=== PATIENT | male | born 1950 | race African-American/Black ===

== ENCOUNTER 2018-10-23 16:56 | Inpatient (IN) | payer MEDICARE, BC ==
[~2018-10-23] VITALS: Ht 185.4 cm; Wt 88.9 kg
[~2018-10-23 16:56] MED LIST: AMLO2.5T45 MT; CARB-31 MT; CLON0.1T PO; CLOP75TA33 MT; DEPAKOTE PO; DIPHENHYDRAMINE PO; DIVA250T45 MT; L-THYROXINE; LAMICTAL; LAMO50TA3 MT; LEVE250T2 MT; LISI2.5T47 MT; LISINOPRIL PO; LURA120T MT; MIRT15TA6 PO; MIRT7.5T11 MT; PANT20TA3 MT; QUET25TA MT; ZIPR80CA2 PO; ZOLP10TA6 MT; [UNRECOGNIZED DRUG - REMARK]
[2018-10-23] MEDS ORDERED: LEVETIRACETAM 1000MG/100ML 100 ML IV ONE (17:45)
[2018-10-23 17:55] LABS: BASOPHILS % 0.7 % (0.0-2.0); EOSINOPHILS % 2.8 % (0.0-5.0); HEMATOCRIT. 43.6 % (42.0-52.0); HEMOGLOBIN. 14.6 g/dL (14.0-18.0); LYMPHOCYTES % 32.5 % (20.0-50.0); MEAN CORPUSCULAR HEMOGLOBIN 33.4 pg (28.0-32.0); MEAN CORPUSCULAR VOLUME 99.4 fL (80.0-94.0); MEAN PLATELET VOLUME 8.7 fl (7.4-10.4); MONOCYTES % 10.6 % (2.0-8.0); NEUTROPHILS % 53.4 % (40.0-76.0); PLATELET 180 x1000/uL (130-400); RED BLOOD CELL COUNT 4.39 mill/uL (4.7-6.1); RED CELL DISTRIBUTION WIDTH 14.7 % (11.6-14.6)
[2018-10-23 18:01] LABS: CHLORIDE 105 mEq/L (98-107)
[2018-10-23 18:04] LABS: PARTIAL THROMBOPLASTIN TIME 28.2 sec (23.4-31.0); PROTHROMBIN TIME 10.7 sec (9.6-11.0)
[2018-10-23 18:06] LABS: ETHANOL BLOOD < 10 mg/dL
[2018-10-23 18:11] LABS: CREATINE KINASE 246 IU/L (39-308)
[2018-10-23] MEDS ORDERED: LEVETIRACETAM 1000MG/100ML 100 ML IV SCH (18:15)
[2018-10-23 18:19] LABS: CLARITY URINE CLEAR (CLEAR); COLOR URINE YELLOW (YELLOW); KETONES URINE NEGATIVE (NEGATIVE); LEUKOCYTE ESTERASE URINE NEGATIVE (NEGATIVE); NITRITE URINE NEGATIVE (NEGATIVE); OCCULT BLOOD URINE NEGATIVE (NEGATIVE); PROTEIN URINE NEGATIVE (NEGATIVE); SPECIFIC GRAVITY URINE 1.004 (1.005-1.030); UROBILINOGEN URINE 0.2 E.U./dL (0.2-1.0)
[2018-10-23 18:34] LABS: *AMPHETAMINES SCREEN URINE NEGATIVE (NEGATIVE); *BARBITURATES SCREEN URINE NEGATIVE (NEGATIVE); *BENZODIAZEPINES SCREEN URINE NEGATIVE (NEGATIVE); *COCAINE SCREEN URINE NEGATIVE (NEGATIVE); CANNABINOID URINE SCREEN NEGATIVE (NEGATIVE); METHADONE URINE SCREEN NEGATIVE (NEGATIVE)
[2018-10-23 18:35] LABS: OPIATES URINE SCREEN NEGATIVE (NEGATIVE); PHENCYCLIDINE URINE SCREEN NEGATIVE (NEGATIVE)
[2018-10-23] MEDS ORDERED: VALPROATE SODIUM 250MG/5ML UDC PO ONE (19:30)
[2018-10-23] MEDS ORDERED: KETOROLAC 30MG/ML VIAL IV ONE (19:30)
[2018-10-23] MEDS ORDERED: ACETAMINOPHEN 325MG TABLET PO PRN (20:30)
[2018-10-23] MEDS ORDERED: ONDANSETRON HCL 4MG/2ML INJ IV PRN (20:30)
[2018-10-23] MEDS ORDERED: DIVALPROEX SODIUM 250MG DR TABLET PO NR (22:00)
[2018-10-23] MEDS ORDERED: LEVETIRACETAM 500MG TABLET PO NR (22:00)
[2018-10-23] MEDS ORDERED: AMLODIPINE 5MG TABLET PO NR (22:00)
[2018-10-23 22:30] VITALS: BP 144/93
[2018-10-23 22:46] VITALS: BP 144/93
[2018-10-24] VITALS: BP 147/69
[2018-10-24] MEDS ORDERED: LORAZEPAM 2MG/ML CPJ IV PRN (00:35)
[2018-10-24] MEDS ORDERED: ZOLPIDEM TARTRATE 5MG TABLET PO PRN (00:35)
[2018-10-24 04:00] VITALS: BP 127/68
[2018-10-24 07:10] LABS: BASOPHILS % 0.5 % (0.0-2.0); EOSINOPHILS % 4.5 % (0.0-5.0); HEMATOCRIT. 40.8 % (42.0-52.0); HEMOGLOBIN. 13.7 g/dL (14.0-18.0); LYMPHOCYTES % 43.7 % (20.0-50.0); MEAN CORPUSCULAR HEMOGLOBIN 33.6 pg (28.0-32.0); MEAN CORPUSCULAR VOLUME 99.7 fL (80.0-94.0); MEAN PLATELET VOLUME 9.1 fl (7.4-10.4); MONOCYTES % 10.4 % (2.0-8.0); NEUTROPHILS % 40.9 % (40.0-76.0); PLATELET 174 x1000/uL (130-400); RED BLOOD CELL COUNT 4.09 mill/uL (4.7-6.1); RED CELL DISTRIBUTION WIDTH 14.5 % (11.6-14.6)
[2018-10-24 07:12] LABS: CHLORIDE 106 mEq/L (98-107)
[2018-10-24 08:00] VITALS: BP 102/53
[2018-10-24] MEDS: DIVALPROEX SODIUM 250MG DR TABLET PO SCH ×2 (08:54→21:06)
[2018-10-24] MEDS: LEVETIRACETAM 500MG TABLET PO SCH ×2 (08:54→21:07)
[2018-10-24] MEDS: AMLODIPINE 5MG TABLET PO SCH ×2 (08:54→21:06)
[2018-10-24] MEDS ORDERED: LAMOTRIGINE 25MG TABLET PO SCH (09:00)
[2018-10-24 12:00] VITALS: BP 129/54
[2018-10-24] MEDS ORDERED: PNEUMOCOCCAL 23-VAL P-SAC VAC 0.5 ML IM ONE (12:00)
[2018-10-24 16:00] VITALS: BP 122/84
[2018-10-24] MEDS: LEVOTHYROXINE SODIUM 25MCG TABLET PO SCH (18:43)
[2018-10-24 20:00] VITALS: BP 124/64
[2018-10-24] MEDS: ATORVASTATIN CALCIUM 40MG TABLET PO SCH (21:06)
[2018-10-25] VITALS: BP 126/61
[2018-10-25 04:00] VITALS: BP 125/61
[2018-10-25] MEDS: LEVOTHYROXINE SODIUM 25MCG TABLET PO SCH (06:37)
[2018-10-25 06:39] LABS: BASOPHILS % 0.5 % (0.0-2.0); EOSINOPHILS % 4.8 % (0.0-5.0); HEMATOCRIT. 40.1 % (42.0-52.0); HEMOGLOBIN. 13.6 g/dL (14.0-18.0); LYMPHOCYTES % 46.9 % (20.0-50.0); MEAN CORPUSCULAR HEMOGLOBIN 33.7 pg (28.0-32.0); MEAN CORPUSCULAR VOLUME 99.4 fL (80.0-94.0); MONOCYTES % 10.2 % (2.0-8.0); NEUTROPHILS % 37.6 % (40.0-76.0); PLATELET 170 x1000/uL (130-400); RED BLOOD CELL COUNT 4.04 mill/uL (4.7-6.1); RED CELL DISTRIBUTION WIDTH 14.2 % (11.6-14.6)
[2018-10-25 06:44] LABS: CHLORIDE 105 mEq/L (98-107)
[2018-10-25 08:00] VITALS: BP 130/60
[2018-10-25] MEDS: LEVETIRACETAM 500MG TABLET PO SCH ×2 (09:38→21:13)
[2018-10-25] MEDS: AMLODIPINE 5MG TABLET PO SCH ×2 (09:39→21:13)
[2018-10-25 12:00] VITALS: BP 134/71
[2018-10-25] MEDS: DIVALPROEX SODIUM 250MG DR TABLET PO SCH ×2 (14:42→21:13)
[2018-10-25 16:00] VITALS: BP 142/76
[2018-10-25 20:00] VITALS: BP 142/64
[2018-10-25] MEDS: DOCUSATE SODIUM 100MG CAPSULE PO PRN (21:13)
[2018-10-25] MEDS: ATORVASTATIN CALCIUM 40MG TABLET PO SCH (21:13)
[2018-10-26] VITALS: BP 139/69
[2018-10-26 04:00] VITALS: BP 139/69
[2018-10-26] MEDS: DIVALPROEX SODIUM 250MG DR TABLET PO SCH ×2 (05:56→14:36)
[2018-10-26] MEDS: LEVOTHYROXINE SODIUM 25MCG TABLET PO SCH (05:56)
[2018-10-26 08:00] VITALS: BP 134/68
[2018-10-26] MEDS: AMLODIPINE 5MG TABLET PO SCH (08:15)
[2018-10-26] MEDS: DOCUSATE SODIUM 100MG CAPSULE PO PRN (08:15)
[2018-10-26] MEDS: LEVETIRACETAM 500MG TABLET PO SCH (08:15)
[2018-10-26 12:00] VITALS: BP 130/64
[2018-10-26] MEDS ORDERED: AMLO5TAB88 PO (14:19)
[2018-10-26] MEDS ORDERED: DIVA250T4 PO (14:19)
[2018-10-26] MEDS ORDERED: LIP40 PO (14:19)
[2018-10-26] MEDS ORDERED: KEPP500 PO (14:19)
[2018-10-26] MEDS ORDERED: LEVO25TA7 PO (14:19)
[2018-10-26] MEDS ORDERED: POLY119P2 MT (14:19)
[2018-10-26] MEDS ORDERED: LACTULOSE 20G/30ML UDC PO NR (14:30)
[2018-10-26 16:00] VITALS: BP 112/76
== END 2018-10-26 18:27 | disposition home or self-care (01) | DRG 53 ==
LOC: ER 16:56 → 5WST 19:53 → EDBEDREQ 19:56 → EDBEDREQTM 19:56 → ENRESERV 20:39
PROVIDERS: ADMIT Internal Medicine; ATTEND Internal Medicine
PROC: 4A00X4Z Measurement of Central Nervous Electrical Activity, External Approach (ICD-10-PCS; principal; 2018-10-25)
DX: G40.909 Epilepsy, unspecified, not intractable, without status epilepticus (principal); G20 Parkinson's disease; E03.9 Hypothyroidism, unspecified; E78.5 Hyperlipidemia, unspecified; I10 Essential (primary) hypertension; E78.00 Pure hypercholesterolemia, unspecified; F17.210 Nicotine dependence, cigarettes, uncomplicated; Z60.2 Problems related to living alone; T42.6X6A Underdosing of other antiepileptic and sedative-hypnotic drugs, initial encounter; Y92.89 Other specified places as the place of occurrence of the external cause; Z79.899 Other long term (current) drug therapy; Z71.6 Tobacco abuse counseling; Z91.14 Patient's other noncompliance with medication regimen; Z86.73 Personal history of transient ischemic attack (TIA), and cerebral infarction without residual deficits
CPT/HCPCS: 36415; 70551; 71045; 80048; 80165; 80305; 80320; 82542; 82550; 83735; 83880; 84484; 93005; 93970; 96365; 96375; 99291; J1885; J1953; G0480

== ENCOUNTER 2019-08-08 15:11 | Inpatient (IN) | payer MEDICARE, MEDICAID ==
[~2019-08-08] VITALS: Ht 188 cm; Wt 96.2 kg
[~2019-08-08 15:11] MED LIST changes: -AMLO2.5T45 MT; +AMLO5TAB88 PO; -CLON0.1T PO; -DEPAKOTE PO; -DIPHENHYDRAMINE PO; +DIVA250T4 PO; -DIVA250T45 MT; +KEPP500 PO; -L-THYROXINE; -LAMICTAL; -LAMO50TA3 MT; -LEVE250T2 MT; +LEVO25TA7 PO; +LIP40 PO; -LISI2.5T47 MT; -LISINOPRIL PO; -MIRT15TA6 PO; +POLY119P2 MT; -ZIPR80CA2 PO; -ZOLP10TA6 MT; -[UNRECOGNIZED DRUG - REMARK]
[2019-08-08 16:05] LABS: BASOPHILS % 0.4 % (0.0-2.0); EOSINOPHILS % 4.8 % (0.0-5.0); HEMATOCRIT. 44.5 % (42.0-52.0); HEMOGLOBIN. 15.4 g/dL (14.0-18.0); LYMPHOCYTES % 41.2 % (20.0-50.0); MEAN CORPUSCULAR HEMOGLOBIN 34.7 pg (28.0-32.0); MEAN CORPUSCULAR VOLUME 100.4 fL (80.0-94.0); MONOCYTES % 9.3 % (2.0-8.0); NEUTROPHILS % 44.3 % (40.0-76.0); PLATELET 179 x1000/uL (130-400); RED BLOOD CELL COUNT 4.43 mill/uL (4.7-6.1); RED CELL DISTRIBUTION WIDTH 14.3 % (11.6-14.6)
[2019-08-08 16:10] LABS: CHLORIDE 108 mEq/L (98-107)
[2019-08-08 16:12] LABS: CLARITY URINE CLEAR (CLEAR); COLOR URINE YELLOW (YELLOW); KETONES URINE NEGATIVE (NEGATIVE); LEUKOCYTE ESTERASE URINE NEGATIVE (NEGATIVE); NITRITE URINE NEGATIVE (NEGATIVE); OCCULT BLOOD URINE NEGATIVE (NEGATIVE); PH URINE 7.5 (4.5-8.0); PROTEIN URINE NEGATIVE (NEGATIVE); SPECIFIC GRAVITY URINE 1.011 (1.005-1.030); UROBILINOGEN URINE 0.2 E.U./dL (0.2-1.0)
[2019-08-08 16:13] LABS: PARTIAL THROMBOPLASTIN TIME 27.7 sec (23.4-31.0); PROTHROMBIN TIME 10.7 sec (9.6-11.0)
[2019-08-08 16:14] LABS: ETHANOL BLOOD < 10 mg/dL
[2019-08-08 16:17] LABS: LDL CHOLESTEROL 54 mg/dL (5-100)
[2019-08-08 16:48] LABS: *COCAINE SCREEN URINE NEGATIVE (NEGATIVE); CANNABINOID URINE SCREEN NEGATIVE (NEGATIVE); METHADONE URINE SCREEN NEGATIVE (NEGATIVE); OPIATES URINE SCREEN NEGATIVE (NEGATIVE); PHENCYCLIDINE URINE SCREEN NEGATIVE (NEGATIVE)
[2019-08-08 16:49] LABS: *AMPHETAMINES SCREEN URINE NEGATIVE (NEGATIVE); *BARBITURATES SCREEN URINE NEGATIVE (NEGATIVE); *BENZODIAZEPINES SCREEN URINE NEGATIVE (NEGATIVE)
[2019-08-08] MEDS ORDERED: IOHEXOL-350 100 ML BOTTLE ONE (17:11)
[2019-08-08] MEDS ORDERED: ASPIRIN 81MG EC TABLET PO ONE (18:00)
[2019-08-08] MEDS ORDERED: TRAMADOL 50MG TABLET PO ONE (18:15)
[2019-08-08] MEDS ORDERED: ONDANSETRON HCL 4MG/2ML INJ IV PRN (21:00)
[2019-08-08] MEDS ORDERED: DOCUSATE SODIUM 100MG CAPSULE PO PRN (21:00)
[2019-08-08] MEDS ORDERED: CLONIDINE 0.1MG TABLET PO PRN (21:00)
[2019-08-08] MEDS ORDERED: CARBIDOPA/LEVODOPA 10/100MG TABLET PO SCH (21:00)
[2019-08-08] MEDS ORDERED: ACETAMINOPHEN 325MG TABLET PO PRN (21:00)
[2019-08-08] MEDS: MIRTAZAPINE 15MG TABLET PO SCH (23:12)
[2019-08-08] MEDS: QUETIAPINE FUMARATE 25MG TABLET PO SCH (23:13)
[2019-08-08] MEDS: ATORVASTATIN CALCIUM 40MG TABLET PO SCH (23:13)
[2019-08-08] MEDS: DIVALPROEX SODIUM 250MG DR TABLET PO SCH (23:13)
[2019-08-08] MEDS: LEVETIRACETAM 500MG TABLET PO SCH (23:13)
[2019-08-08 23:49] VITALS: BP 124/59
[2019-08-09] VITALS: BP 128/62
[2019-08-09 04:00] VITALS: BP 125/65
[2019-08-09] MEDS: DIVALPROEX SODIUM 250MG DR TABLET PO SCH ×3 (05:43→22:48)
[2019-08-09 07:02] LABS: BASOPHILS % 0.5 % (0.0-2.0); EOSINOPHILS % 4.3 % (0.0-5.0); HEMATOCRIT. 40.5 % (42.0-52.0); HEMOGLOBIN. 14.1 g/dL (14.0-18.0); LYMPHOCYTES % 43.2 % (20.0-50.0); MEAN CORPUSCULAR HEMOGLOBIN 34.7 pg (28.0-32.0); MEAN CORPUSCULAR VOLUME 99.7 fL (80.0-94.0); MEAN PLATELET VOLUME 9.7 fl (7.4-10.4); MONOCYTES % 8.9 % (2.0-8.0); NEUTROPHILS % 43.1 % (40.0-76.0); PLATELET 172 x1000/uL (130-400); RED BLOOD CELL COUNT 4.06 mill/uL (4.7-6.1); RED CELL DISTRIBUTION WIDTH 14.1 % (11.6-14.6)
[2019-08-09 07:19] LABS: CHLORIDE 109 mEq/L (98-107)
[2019-08-09 07:36] LABS: LDL CHOLESTEROL 48 mg/dL (5-100)
[2019-08-09 07:39] LABS: HDL CHOLESTEROL 30 mg/dL (40-59)
[2019-08-09 08:00] VITALS: BP 122/68
[2019-08-09] MEDS: AMLODIPINE 5MG TABLET PO SCH ×2 (09:29→22:43)
[2019-08-09] MEDS: LEVETIRACETAM 500MG TABLET PO SCH ×2 (09:29→22:43)
[2019-08-09] MEDS: CLOPIDOGREL 75MG TABLET PO SCH (09:29)
[2019-08-09] MEDS: LEVOTHYROXINE SODIUM 25MCG TABLET PO SCH (09:29)
[2019-08-09] MEDS: HEPARIN 5000 UNITS/ML VIAL SUBCUT SCH ×2 (09:30→22:41)
[2019-08-09 12:00] VITALS: BP 130/71
[2019-08-09 15:58] LABS: T4 FREE 0.99 ng/dL (0.76-1.46)
[2019-08-09 16:00] VITALS: BP 138/76
[2019-08-09 16:27] LABS: FOLIC ACID (FOLATE) SERUM >20 ng/mL ng/mL (>5.38)
[2019-08-09 16:38] LABS: VITAMIN B12 SERUM 260 pg/mL (211-911)
[2019-08-09 20:00] VITALS: BP 155/74
[2019-08-09] MEDS: MIRTAZAPINE 15MG TABLET PO SCH (22:41)
[2019-08-09] MEDS: QUETIAPINE FUMARATE 25MG TABLET PO SCH (22:42)
[2019-08-09] MEDS: ATORVASTATIN CALCIUM 40MG TABLET PO SCH (22:48)
[2019-08-09] MEDS: CARBIDOPA/LEVODOPA 10/100MG TABLET PO SCH (23:00)
[2019-08-10] VITALS: BP 112/58
[2019-08-10 04:00] VITALS: BP 123/54
[2019-08-10] MEDS ORDERED: HALOPERIDOL LACTATE 5MG/ML VIAL IM PRN ×2 (05:15→08:00)
[2019-08-10] MEDS ORDERED: HALOPERIDOL 0.5MG TABLET PO PRN (05:15)
[2019-08-10] MEDS: DIVALPROEX SODIUM 250MG DR TABLET PO SCH ×3 (06:47→21:40)
[2019-08-10] MEDS: LEVOTHYROXINE SODIUM 25MCG TABLET PO SCH (06:47)
[2019-08-10] MEDS: LORAZEPAM 2MG/ML CPJ IV PRN ×2 (08:18→21:39)
[2019-08-10] MEDS: LEVETIRACETAM 500MG TABLET PO SCH ×2 (09:45→21:40)
[2019-08-10] MEDS: CARBIDOPA/LEVODOPA 10/100MG TABLET PO SCH ×2 (09:45→17:30)
[2019-08-10] MEDS: CLOPIDOGREL 75MG TABLET PO SCH (09:46)
[2019-08-10] MEDS: AMLODIPINE 5MG TABLET PO SCH ×2 (09:46→21:39)
[2019-08-10] MEDS: HEPARIN 5000 UNITS/ML VIAL SUBCUT SCH ×2 (09:49→21:39)
[2019-08-10 12:00] VITALS: BP 123/77
[2019-08-10] MEDS: CYANOCOBALAMIN 1000MCG/ML VIAL IM SCH (13:36)
[2019-08-10 15:55] LABS: BASOPHILS % 0.4 % (0.0-2.0); EOSINOPHILS % 1.6 % (0.0-5.0); HEMATOCRIT. 44.9 % (42.0-52.0); HEMOGLOBIN. 15.4 g/dL (14.0-18.0); LYMPHOCYTES % 23.9 % (20.0-50.0); MEAN CORPUSCULAR HEMOGLOBIN 34.3 pg (28.0-32.0); MEAN CORPUSCULAR VOLUME 100.2 fL (80.0-94.0); MEAN PLATELET VOLUME 9.3 fl (7.4-10.4); MONOCYTES % 8.6 % (2.0-8.0); NEUTROPHILS % 65.5 % (40.0-76.0); PLATELET 179 x1000/uL (130-400); RED BLOOD CELL COUNT 4.48 mill/uL (4.7-6.1); RED CELL DISTRIBUTION WIDTH 14.1 % (11.6-14.6)
[2019-08-10 16:00] VITALS: BP 145/78
[2019-08-10 16:54] LABS: CHLORIDE 104 mEq/L (98-107)
[2019-08-10] MEDS: NICOTINE 21MG PATCH TD SCH (17:30)
[2019-08-10] MEDS ORDERED: HYDROCODONE/ACETAMINOPHEN 5/325MG TABLET PO PRN (18:15)
[2019-08-10 20:00] VITALS: BP 134/75
[2019-08-10] MEDS: QUETIAPINE FUMARATE 25MG TABLET PO SCH (21:40)
[2019-08-10] MEDS: MIRTAZAPINE 15MG TABLET PO SCH (21:40)
[2019-08-10] MEDS: ATORVASTATIN CALCIUM 40MG TABLET PO SCH (21:40)
[2019-08-10] MEDS: TRAMADOL 50MG TABLET PO PRN (22:00)
[2019-08-11] VITALS: BP 141/72
[2019-08-11 04:00] VITALS: BP 129/77
[2019-08-11] MEDS: DIVALPROEX SODIUM 250MG DR TABLET PO SCH ×3 (05:50→21:05)
[2019-08-11 08:00] VITALS: BP 152/83
[2019-08-11] MEDS: LEVOTHYROXINE SODIUM 25MCG TABLET PO SCH (10:45)
[2019-08-11] MEDS: LEVETIRACETAM 500MG TABLET PO SCH ×2 (10:45→21:02)
[2019-08-11] MEDS: CLOPIDOGREL 75MG TABLET PO SCH (10:45)
[2019-08-11] MEDS: HEPARIN 5000 UNITS/ML VIAL SUBCUT SCH ×2 (10:45→21:01)
[2019-08-11] MEDS: CYANOCOBALAMIN 1000MCG/ML VIAL IM SCH (10:45)
[2019-08-11] MEDS: CARBIDOPA/LEVODOPA 10/100MG TABLET PO SCH (10:45)
[2019-08-11] MEDS: NICOTINE 21MG PATCH TD SCH (10:46)
[2019-08-11] MEDS: AMLODIPINE 5MG TABLET PO SCH ×2 (10:46→21:02)
[2019-08-11 12:00] VITALS: BP 146/87
[2019-08-11] MEDS ORDERED: BISACODYL 10MG SUPP PR PRN (15:15)
[2019-08-11 16:00] VITALS: BP 131/78
[2019-08-11] MEDS: LACTULOSE 20G/30ML UDC PO SCH ×3 (16:28→21:01)
[2019-08-11] MEDS: DOCUSATE SODIUM 100MG CAPSULE PO SCH (16:28)
[2019-08-11 20:00] VITALS: BP 120/56
[2019-08-11] MEDS: MIRTAZAPINE 15MG TABLET PO SCH (21:01)
[2019-08-11] MEDS: TRAMADOL 50MG TABLET PO PRN (21:01)
[2019-08-11] MEDS: QUETIAPINE FUMARATE 25MG TABLET PO SCH (21:02)
[2019-08-11] MEDS: POLYETHYLENE GLYCOL 3350 (17GM) 1 DOSE PACK PO SCH (21:02)
[2019-08-11] MEDS: ATORVASTATIN CALCIUM 40MG TABLET PO SCH (21:05)
[2019-08-12] VITALS: BP 98/47
[2019-08-12 04:00] VITALS: BP 101/52
[2019-08-12] MEDS: DIVALPROEX SODIUM 250MG DR TABLET PO SCH ×2 (06:45→13:45)
[2019-08-12 08:00] VITALS: BP 118/66
[2019-08-12] MEDS ORDERED: CYANOCOBALAMIN 1000MCG TABLET PO SCH (08:10)
[2019-08-12] MEDS: CYANOCOBALAMIN 1000MCG/ML VIAL IM SCH (08:23)
[2019-08-12] MEDS: NICOTINE 21MG PATCH TD SCH (08:23)
[2019-08-12] MEDS: HEPARIN 5000 UNITS/ML VIAL SUBCUT SCH ×2 (08:24→20:15)
[2019-08-12] MEDS: CARBIDOPA/LEVODOPA 10/100MG TABLET PO SCH ×2 (08:25→16:54)
[2019-08-12] MEDS: LEVOTHYROXINE SODIUM 25MCG TABLET PO SCH (08:25)
[2019-08-12] MEDS: DOCUSATE SODIUM 100MG CAPSULE PO SCH ×2 (08:25→16:54)
[2019-08-12] MEDS: LEVETIRACETAM 500MG TABLET PO SCH ×2 (08:25→20:13)
[2019-08-12] MEDS: AMLODIPINE 5MG TABLET PO SCH ×2 (08:25→20:13)
[2019-08-12] MEDS: CLOPIDOGREL 75MG TABLET PO SCH (08:25)
[2019-08-12] MEDS: TRAMADOL 50MG TABLET PO PRN (08:37)
[2019-08-12 09:53] LABS: BASOPHILS % 0.5 % (0.0-2.0); EOSINOPHILS % 5.3 % (0.0-5.0); HEMATOCRIT. 44.7 % (42.0-52.0); HEMOGLOBIN. 15.1 g/dL (14.0-18.0); LYMPHOCYTES % 34.6 % (20.0-50.0); MEAN CORPUSCULAR HEMOGLOBIN 33.9 pg (28.0-32.0); MEAN CORPUSCULAR VOLUME 100.7 fL (80.0-94.0); MEAN PLATELET VOLUME 9.3 fl (7.4-10.4); MONOCYTES % 9.8 % (2.0-8.0); NEUTROPHILS % 49.8 % (40.0-76.0); PLATELET 158 x1000/uL (130-400); RED BLOOD CELL COUNT 4.44 mill/uL (4.7-6.1)
[2019-08-12 10:49] LABS: CHLORIDE 103 mEq/L (98-107)
[2019-08-12 12:00] VITALS: BP 117/81
[2019-08-12 16:00] VITALS: BP 148/76
[2019-08-12] MEDS ORDERED: SORBITOL 70% SOLN 30ML PO NR (16:15)
[2019-08-12] MEDS ORDERED: NICO-645 TP (16:55)
[2019-08-12] MEDS ORDERED: MINERAL OIL ENEMA 133ML PR NR (18:00)
[2019-08-12 19:49] VITALS: BP 151/79
[2019-08-12] MEDS: QUETIAPINE FUMARATE 25MG TABLET PO SCH (20:12)
[2019-08-12] MEDS: ATORVASTATIN CALCIUM 40MG TABLET PO SCH (20:12)
[2019-08-12] MEDS: MIRTAZAPINE 15MG TABLET PO SCH (20:13)
[2019-08-12] MEDS: POLYETHYLENE GLYCOL 3350 (17GM) 1 DOSE PACK PO SCH (20:14)
[2019-08-23] MEDS ORDERED: CYANOCOBALAMIN 1000MCG/ML VIAL IM SCH (09:00)
== END 2019-08-12 21:15 | disposition home or self-care (01) | DRG 47 ==
LOC: ER 15:11 → 7WST 18:54 → EDBEDREQTM 19:01 → EDBEDREQSVC 19:01 → EDBEDREQ 19:01 → ENRESERV 21:01
PROVIDERS: ADMIT Internal Medicine; ATTEND Internal Medicine
DX: G45.9 Transient cerebral ischemic attack, unspecified (principal); G20 Parkinson's disease; F02.80 Dementia in other diseases classified elsewhere, unspecified severity, without behavioral disturbance, psychotic disturbance, mood disturbance, and anxiety; G40.909 Epilepsy, unspecified, not intractable, without status epilepticus; I10 Essential (primary) hypertension; E78.5 Hyperlipidemia, unspecified; E53.8 Deficiency of other specified B group vitamins; E78.00 Pure hypercholesterolemia, unspecified; R26.9 Unspecified abnormalities of gait and mobility; E03.9 Hypothyroidism, unspecified; J98.11 Atelectasis; Z82.49 Family history of ischemic heart disease and other diseases of the circulatory system; Z83.3 Family history of diabetes mellitus; Z88.6 Allergy status to analgesic agent; Z86.73 Personal history of transient ischemic attack (TIA), and cerebral infarction without residual deficits; Z88.8 Allergy status to other drugs, medicaments and biological substances
CPT/HCPCS: 36415; 70496; 70551; 71045; 80048; 80053; 80061; 80165; 80305; 80320; 81003; 82542; 82607; 82746; 82962; 83036; 83721; 83880; 84439; 84443; 84481; 84484; 85025; 92610; 93005; 93306; 93880; 93970; 97162; 99285; J1630; J1644; J2060; J3420; Q9967; G0480

== ENCOUNTER 2021-03-31 07:17 | Inpatient (IN) | payer MEDICARE, MEDICAID ==
[~2021-03-31] VITALS: Ht 185.4 cm; Wt 60.3 kg
[~2021-03-31 07:17] MED LIST changes: +AMAN100C16 PO; +AMLO10TA4; +AMLO10TA80 PO; +ATOR40TA70 PO; +CARB/LEVO PO; +CLON0.1T14; +CLOP75TA33 PO; +DEPAK2; +DIVA250T45 PO; +DIVAL250; +KEPP250; +LAM25; +LAMO100T16 PO; +LEVE10006 PO; +LEVE250T2; +LEVO100T9 PO; +LEVO100V4; +LEVO75TA7; +LISI10TA26; +LISI10TA26 PO; +LISINOPRIL; +LURA40TA PO; +MIRT45TA83 PO; +MIRTAZAPINE; +MYLAN; +NICO-645 TP; +PANT20TA17 MT; -PANT20TA3 MT; +PANT40TA51; +PANT40TA51 PO; +QUET300T20 PO; +TC025U80; +VITAMIN D; +ZIPR60CA2; +ZIPR80CA2; +ZOLP10TA2 PO
[2021-03-31] MEDS ORDERED: SODIUM CHLORIDE 0.9% 1000ML BAG (SEPSIS BOLUS) IV ONE (08:00)
[2021-03-31 08:36] LABS: BASOPHILS % 0.6 % (0.0-2.0); EOSINOPHILS % 2.6 % (0.0-5.0); HEMATOCRIT. 37.9 % (42.0-52.0); HEMOGLOBIN. 12.7 g/dL (14.0-18.0); LYMPHOCYTES % 40.1 % (20.0-50.0); MEAN CORPUSCULAR HEMOGLOBIN 34.1 pg (28.0-32.0); MEAN CORPUSCULAR VOLUME 102.2 fL (80.0-94.0); MEAN PLATELET VOLUME 8.2 fl (7.4-10.4); MONOCYTES % 9.5 % (2.0-8.0); NEUTROPHILS % 47.2 % (40.0-76.0); PLATELET 179 x1000/uL (130-400); RED BLOOD CELL COUNT 3.71 mill/uL (4.7-6.1); RED CELL DISTRIBUTION WIDTH 14.9 % (11.6-14.6)
[2021-03-31 08:44] LABS: CHLORIDE 102 mEq/L (98-107)
[2021-03-31 08:45] LABS: PROTHROMBIN TIME 10.9 sec (9.6-11.0)
[2021-03-31 10:58] LABS: CLARITY URINE CLEAR (CLEAR); COLOR URINE DK YELLOW (YELLOW); KETONES URINE TRACE (NEGATIVE); LEUKOCYTE ESTERASE URINE NEGATIVE (NEGATIVE); NITRITE URINE NEGATIVE (NEGATIVE); OCCULT BLOOD URINE NEGATIVE (NEGATIVE); PROTEIN URINE NEGATIVE (NEGATIVE); SPECIFIC GRAVITY URINE 1.019 (1.005-1.030)
[2021-03-31] MEDS ORDERED: DIPHENHYDRAMINE 50MG/ML VIAL IV PRN (12:45)
[2021-03-31] MEDS ORDERED: CLONIDINE 0.1MG TABLET PO PRN (12:45)
[2021-03-31] MEDS ORDERED: ONDANSETRON HCL 4MG/2ML INJ IV PRN (12:45)
[2021-03-31] MEDS: SODIUM CHLORIDE 0.9% 1,000 ML IV SCH (13:20)
[2021-03-31 14:12] LABS: CREATINE KINASE MB FRACTION 3.2 ng/mL (0.5-3.6)
[2021-03-31] MEDS ORDERED: ZOLPIDEM TARTRATE 5MG TABLET PO PRN (19:30)
[2021-03-31] MEDS ORDERED: NALOXONE HCL 0.4MG/ML VIAL IV PRN (20:00)
[2021-04-01] MEDS: MIRTAZAPINE 15MG TABLET PO SCH ×2 (00:16→20:02)
[2021-04-01] MEDS: ATORVASTATIN CALCIUM 40MG TABLET PO SCH ×2 (00:16→20:01)
[2021-04-01] MEDS: LEVETIRACETAM 500MG TABLET PO SCH ×3 (00:16→20:01)
[2021-04-01] MEDS: QUETIAPINE FUMARATE 50MG TABLET PO SCH ×3 (00:17→20:02)
[2021-04-01 01:48] LABS: CREATINE KINASE MB FRACTION 3.4 ng/mL (0.5-3.6)
[2021-04-01 03:11] VITALS: BP 128/75
[2021-04-01 04:00] VITALS: BP 141/65
[2021-04-01] MEDS: SODIUM CHLORIDE 0.9% 1,000 ML IV SCH ×2 (05:25→20:44)
[2021-04-01] MEDS: PANTOPRAZOLE 40MG DR TABLET PO SCH (06:31)
[2021-04-01] MEDS: LEVOTHYROXINE SODIUM 100MCG TABLET PO SCH (06:31)
[2021-04-01 06:55] LABS: BASOPHILS % 0.6 % (0.0-2.0); HEMATOCRIT. 38.1 % (42.0-52.0); HEMOGLOBIN. 12.9 g/dL (14.0-18.0); LYMPHOCYTES % 33.3 % (20.0-50.0); MEAN CORPUSCULAR HEMOGLOBIN 34.7 pg (28.0-32.0); MEAN CORPUSCULAR VOLUME 102.4 fL (80.0-94.0); MEAN PLATELET VOLUME 8.7 fl (7.4-10.4); MONOCYTES % 9.2 % (2.0-8.0); NEUTROPHILS % 54.9 % (40.0-76.0); PLATELET 175 x1000/uL (130-400); RED BLOOD CELL COUNT 3.72 mill/uL (4.7-6.1); RED CELL DISTRIBUTION WIDTH 15.2 % (11.6-14.6)
[2021-04-01 07:18] LABS: CHLORIDE 106 mEq/L (98-107)
[2021-04-01 07:29] LABS: LDL CHOLESTEROL 60 mg/dL (5-100)
[2021-04-01 07:30] LABS: CREATINE KINASE 817 IU/L (39-308)
[2021-04-01 07:31] LABS: HDL CHOLESTEROL 63 mg/dL (40-59)
[2021-04-01 08:00] VITALS: BP 118/76
[2021-04-01] MEDS: LISINOPRIL 10MG TABLET PO SCH (08:47)
[2021-04-01] MEDS: CLOPIDOGREL 75MG TABLET PO SCH (08:47)
[2021-04-01] MEDS: AMLODIPINE 10MG TABLET PO SCH (08:47)
[2021-04-01] MEDS: LAMOTRIGINE 100MG TABLET PO SCH (08:48)
[2021-04-01] MEDS: DIVALPROEX SODIUM 250MG ER TABLET PO SCH (08:48)
[2021-04-01] MEDS: CARBIDOPA/LEVODOPA 25/100MG TABLET CR PO SCH (11:40)
[2021-04-01 12:00] VITALS: BP 121/63
[2021-04-01 14:50] LABS: T4 FREE 0.68 ng/dL (0.76-1.46)
[2021-04-01 16:00] VITALS: BP 109/69
[2021-04-01 20:00] VITALS: BP 118/65
[2021-04-02] VITALS (7 sets, daily range): BP systolic 78–143; BP diastolic 44–76
[2021-04-02] MEDS: PANTOPRAZOLE 40MG DR TABLET PO SCH (05:46)
[2021-04-02] MEDS: LEVOTHYROXINE SODIUM 100MCG TABLET PO SCH (05:46)
[2021-04-02 07:18] LABS: BASOPHILS % 0.7 % (0.0-2.0); EOSINOPHILS % 3.7 % (0.0-5.0); HEMATOCRIT. 36.5 % (42.0-52.0); HEMOGLOBIN. 12.3 g/dL (14.0-18.0); LYMPHOCYTES % 47.1 % (20.0-50.0); MEAN CORPUSCULAR HEMOGLOBIN 34.5 pg (28.0-32.0); MEAN CORPUSCULAR VOLUME 102.1 fL (80.0-94.0); MEAN PLATELET VOLUME 8.4 fl (7.4-10.4); MONOCYTES % 8.3 % (2.0-8.0); NEUTROPHILS % 40.2 % (40.0-76.0); PLATELET 183 x1000/uL (130-400); RED BLOOD CELL COUNT 3.58 mill/uL (4.7-6.1); RED CELL DISTRIBUTION WIDTH 15.3 % (11.6-14.6)
[2021-04-02 07:25] LABS: CHLORIDE 107 mEq/L (98-107)
[2021-04-02 07:31] LABS: PHOSPHORUS 3.5 mg/dL (2.5-4.9)
[2021-04-02] MEDS: LAMOTRIGINE 100MG TABLET PO SCH (09:44)
[2021-04-02] MEDS: QUETIAPINE FUMARATE 50MG TABLET PO SCH ×2 (09:44→20:39)
[2021-04-02] MEDS: LEVETIRACETAM 500MG TABLET PO SCH ×2 (09:44→20:39)
[2021-04-02] MEDS: CARBIDOPA/LEVODOPA 25/100MG TABLET CR PO SCH (09:45)
[2021-04-02] MEDS: LISINOPRIL 10MG TABLET PO SCH (09:45)
[2021-04-02] MEDS: AMLODIPINE 10MG TABLET PO SCH (09:45)
[2021-04-02] MEDS: CLOPIDOGREL 75MG TABLET PO SCH (09:45)
[2021-04-02] MEDS: DIVALPROEX SODIUM 250MG ER TABLET PO SCH (09:47)
[2021-04-02] MEDS: SODIUM CHLORIDE 0.9% 1,000 ML IV SCH (13:45)
[2021-04-02] MEDS: ATORVASTATIN CALCIUM 40MG TABLET PO SCH (20:39)
[2021-04-02] MEDS: MIRTAZAPINE 15MG TABLET PO SCH (20:39)
[2021-04-03] VITALS (7 sets, daily range): BP systolic 118–160; BP diastolic 56–79
[2021-04-03] MEDS: LEVOTHYROXINE SODIUM 100MCG TABLET PO SCH (06:40)
[2021-04-03] MEDS: FAMOTIDINE 20MG TABLET PO SCH (06:40)
[2021-04-03] MEDS: SODIUM CHLORIDE 0.9% 1,000 ML IV SCH (06:40)
[2021-04-03 07:06] LABS: CHLORIDE 109 mEq/L (98-107)
[2021-04-03 07:07] LABS: BASOPHILS % 0.4 % (0.0-2.0); EOSINOPHILS % 3.5 % (0.0-5.0); HEMATOCRIT. 38.2 % (42.0-52.0); HEMOGLOBIN. 12.9 g/dL (14.0-18.0); LYMPHOCYTES % 38.5 % (20.0-50.0); MEAN CORPUSCULAR HEMOGLOBIN 34.8 pg (28.0-32.0); MEAN PLATELET VOLUME 8.6 fl (7.4-10.4); MONOCYTES % 9.4 % (2.0-8.0); NEUTROPHILS % 48.2 % (40.0-76.0); PLATELET 176 x1000/uL (130-400); RED BLOOD CELL COUNT 3.71 mill/uL (4.7-6.1); RED CELL DISTRIBUTION WIDTH 15.2 % (11.6-14.6)
[2021-04-03 07:12] LABS: PHOSPHORUS 2.9 mg/dL (2.5-4.9)
[2021-04-03] MEDS: LEVETIRACETAM 500MG TABLET PO SCH ×3 (09:22→21:59)
[2021-04-03] MEDS: AMLODIPINE 10MG TABLET PO SCH (09:22)
[2021-04-03] MEDS: LAMOTRIGINE 100MG TABLET PO SCH (09:22)
[2021-04-03] MEDS: CLOPIDOGREL 75MG TABLET PO SCH (09:22)
[2021-04-03] MEDS: CARBIDOPA/LEVODOPA 25/100MG TABLET CR PO SCH (09:22)
[2021-04-03] MEDS: LISINOPRIL 10MG TABLET PO SCH (09:22)
[2021-04-03] MEDS: DIVALPROEX SODIUM 250MG ER TABLET PO SCH (09:30)
[2021-04-03] MEDS: QUETIAPINE FUMARATE 50MG TABLET PO SCH ×3 (09:30→22:00)
[2021-04-03] MEDS: ATORVASTATIN CALCIUM 40MG TABLET PO SCH ×2 (21:00→22:00)
[2021-04-03] MEDS: MIRTAZAPINE 15MG TABLET PO SCH ×2 (21:00→22:07)
[2021-04-04] MEDS: SODIUM CHLORIDE 0.9% 1,000 ML IV SCH ×2 (00:05→03:54)
[2021-04-04] MEDS ORDERED: HALOPERIDOL LACTATE 5MG/ML VIAL IM PRN (00:15)
[2021-04-04] MEDS: MORPHINE SULFATE 2 MG/ML CPJ (NOT FOR IM USE) IV PRN ×3 (03:43→22:55)
[2021-04-04 04:00] VITALS: BP 122/61
[2021-04-04 05:57] LABS: BASOPHILS % 0.5 % (0.0-2.0); EOSINOPHILS % 2.4 % (0.0-5.0); HEMATOCRIT. 37.7 % (42.0-52.0); HEMOGLOBIN. 12.4 g/dL (14.0-18.0); LYMPHOCYTES % 31.8 % (20.0-50.0); MEAN CORPUSCULAR HEMOGLOBIN 33.9 pg (28.0-32.0); MEAN CORPUSCULAR VOLUME 103.3 fL (80.0-94.0); MEAN PLATELET VOLUME 8.8 fl (7.4-10.4); MONOCYTES % 8.5 % (2.0-8.0); NEUTROPHILS % 56.8 % (40.0-76.0); PLATELET 188 x1000/uL (130-400); RED BLOOD CELL COUNT 3.65 mill/uL (4.7-6.1)
[2021-04-04 06:27] LABS: CHLORIDE 108 mEq/L (98-107)
[2021-04-04 06:32] LABS: PHOSPHORUS 2.5 mg/dL (2.5-4.9)
[2021-04-04] MEDS: LEVOTHYROXINE SODIUM 100MCG TABLET PO SCH (06:59)
[2021-04-04] MEDS: FAMOTIDINE 20MG TABLET PO SCH (06:59)
[2021-04-04 08:00] VITALS: BP 126/63
[2021-04-04] MEDS: QUETIAPINE FUMARATE 50MG TABLET PO SCH ×3 (09:00→20:20)
[2021-04-04] MEDS: LEVETIRACETAM 500MG TABLET PO SCH ×3 (09:00→20:20)
[2021-04-04] MEDS: LISINOPRIL 10MG TABLET PO SCH (09:00)
[2021-04-04] MEDS: CARBIDOPA/LEVODOPA 25/100MG TABLET CR PO SCH ×2 (09:00→15:33)
[2021-04-04] MEDS: CLOPIDOGREL 75MG TABLET PO SCH ×2 (09:00→15:32)
[2021-04-04] MEDS: DIVALPROEX SODIUM 250MG ER TABLET PO SCH (09:00)
[2021-04-04] MEDS: AMLODIPINE 10MG TABLET PO SCH (09:00)
[2021-04-04] MEDS: LAMOTRIGINE 100MG TABLET PO SCH ×2 (09:00→15:33)
[2021-04-04 12:00] VITALS: BP 138/92
[2021-04-04 18:00] VITALS: BP 142/70
[2021-04-04 20:00] VITALS: BP 112/63
[2021-04-04] MEDS: ATORVASTATIN CALCIUM 40MG TABLET PO SCH (20:20)
[2021-04-04] MEDS: MIRTAZAPINE 15MG TABLET PO SCH (20:20)
[2021-04-05] VITALS: BP 138/82
[2021-04-05 04:00] VITALS: BP 122/83
[2021-04-05 06:08] LABS: BASOPHILS % 0.5 % (0.0-2.0); EOSINOPHILS % 4.1 % (0.0-5.0); HEMATOCRIT. 36.7 % (42.0-52.0); HEMOGLOBIN. 12.2 g/dL (14.0-18.0); LYMPHOCYTES % 38.8 % (20.0-50.0); MEAN CORPUSCULAR HEMOGLOBIN 34.2 pg (28.0-32.0); MEAN PLATELET VOLUME 8.7 fl (7.4-10.4); MONOCYTES % 7.9 % (2.0-8.0); NEUTROPHILS % 48.7 % (40.0-76.0); PLATELET 182 x1000/uL (130-400); RED BLOOD CELL COUNT 3.56 mill/uL (4.7-6.1); RED CELL DISTRIBUTION WIDTH 15.4 % (11.6-14.6)
[2021-04-05] MEDS: FAMOTIDINE 20MG TABLET PO SCH (06:40)
[2021-04-05] MEDS: LEVOTHYROXINE SODIUM 100MCG TABLET PO SCH (06:40)
[2021-04-05 08:00] VITALS: BP 143/75
[2021-04-05] MEDS: DIVALPROEX SODIUM 250MG ER TABLET PO SCH (09:22)
[2021-04-05] MEDS: LEVETIRACETAM 500MG TABLET PO SCH (09:22)
[2021-04-05] MEDS: LAMOTRIGINE 100MG TABLET PO SCH (09:22)
[2021-04-05] MEDS: CARBIDOPA/LEVODOPA 25/100MG TABLET CR PO SCH (09:23)
[2021-04-05] MEDS: AMLODIPINE 10MG TABLET PO SCH (09:24)
[2021-04-05] MEDS: QUETIAPINE FUMARATE 50MG TABLET PO SCH (09:24)
[2021-04-05] MEDS: LISINOPRIL 10MG TABLET PO SCH (09:24)
[2021-04-05] MEDS: CLOPIDOGREL 75MG TABLET PO SCH (09:24)
[2021-04-05 12:00] VITALS: BP 138/57
[2021-04-05] MEDS ORDERED: FAMO20TA8 MT (12:13)
[2021-04-05 12:27] LABS: PHOSPHORUS 3.7 mg/dL (2.5-4.9)
[2021-04-05 13:07] LABS: CHLORIDE 108 mEq/L (98-107)
[2021-04-05 16:00] VITALS: BP 119/66
[2021-04-05 17:34] VITALS: BP 143/75
== END 2021-04-05 17:55 | disposition home health service (06) | DRG 42 ==
LOC: ER 07:53 → EDBEDREQ 09:02 → EDBEDREQTM 09:02 → EDBEDREQSVC 09:02 → MERGE 10:30 → MICUSO 10:30 → EDBEDREQ 10:32 → EDBEDREQTM 10:32 → 8WST 21:31
PROVIDERS: ADMIT Internal Medicine; ATTEND Internal Medicine
DX: G20 Parkinson's disease (principal); N17.0 Acute kidney failure with tubular necrosis; M62.82 Rhabdomyolysis; I12.9 Hypertensive chronic kidney disease with stage 1 through stage 4 chronic kidney disease, or unspecified chronic kidney disease; E11.22 Type 2 diabetes mellitus with diabetic chronic kidney disease; M79.662 Pain in left lower leg; N18.9 Chronic kidney disease, unspecified; M79.661 Pain in right lower leg; W01.0XXA Fall on same level from slipping, tripping and stumbling without subsequent striking against object, initial encounter; E78.5 Hyperlipidemia, unspecified; E78.00 Pure hypercholesterolemia, unspecified; R41.0 Disorientation, unspecified; R62.7 Adult failure to thrive; Z82.49 Family history of ischemic heart disease and other diseases of the circulatory system; Z78.1 Physical restraint status; Z68.1 Body mass index [BMI] 19.9 or less, adult; Z88.6 Allergy status to analgesic agent; Z79.899 Other long term (current) drug therapy; Z88.8 Allergy status to other drugs, medicaments and biological substances; Z87.81 Personal history of (healed) traumatic fracture; Y93.89 Activity, other specified; Y92.89 Other specified places as the place of occurrence of the external cause; Y99.8 Other external cause status
CPT/HCPCS: 36415; 71045; 72170; 73552; 73590; 76770; 80048; 80053; 80061; 81003; 82550; 82553; 83605; 83735; 84100; 84145; 84439; 84443; 84481; 84484; 85025; 93005; 93970; 97162; 97166; 97530; 99285; C1893; J1630; J2270; J7030

== ENCOUNTER 2021-04-07 00:48 | Emergency (ER) | payer MEDICARE, MEDICAID ==
[~2021-04-07] VITALS: Ht 182.9 cm; Wt 80.0 kg
[~2021-04-07 00:48] MED LIST changes: +FAMO20TA8 MT; -PANT40TA51 PO
[2021-04-07] MEDS ORDERED: RISPERIDONE 1MG TABLET PO SCH (09:30)
[2021-04-07 13:02] VITALS: BP 96/54
[2021-04-07] MEDS ORDERED: MIRTAZAPINE 30MG TABLET PO SCH (21:00)
== END 2021-04-07 13:47 | disposition home or self-care (01) ==
LOC: ER 00:48
DX: F25.0 Schizoaffective disorder, bipolar type (principal); I10 Essential (primary) hypertension; Z88.5 Allergy status to narcotic agent; Z88.6 Allergy status to analgesic agent
CPT/HCPCS: 71045; 93005; 99285

== ENCOUNTER 2021-05-27 16:29 | Inpatient (IN) | payer MEDICARE, MEDICAID ==
[~2021-05-27] VITALS: Ht 170.2 cm; Wt 62.1 kg
[2021-05-27] MEDS ORDERED: SODIUM CHLORIDE 0.9% 1,000 ML IV ONE (17:00)
[2021-05-27 17:33] LABS: CHLORIDE 106 mEq/L (98-107)
[2021-05-27 17:34] LABS: BASOPHILS % 0.2 % (0.0-2.0); EOSINOPHILS % 0.8 % (0.0-5.0); HEMOGLOBIN. 12.3 g/dL (14.0-18.0); LYMPHOCYTES % 16.6 % (20.0-50.0); MEAN CORPUSCULAR HEMOGLOBIN 34.2 pg (28.0-32.0); MEAN CORPUSCULAR VOLUME 105.4 fL (80.0-94.0); MONOCYTES % 6.4 % (2.0-8.0); PLATELET 176 x1000/uL (130-400); RED BLOOD CELL COUNT 3.61 mill/uL (4.7-6.1); RED CELL DISTRIBUTION WIDTH 14.5 % (11.6-14.6)
[2021-05-27 17:38] LABS: ETHANOL BLOOD < 10 mg/dL
[2021-05-27 17:42] LABS: CREATINE KINASE 434 IU/L (39-308)
[2021-05-27 19:14] LABS: CLARITY URINE CLEAR (CLEAR); COLOR URINE YELLOW (YELLOW); KETONES URINE 1+ (NEGATIVE); LEUKOCYTE ESTERASE URINE 2+ (NEGATIVE); NITRITE URINE NEGATIVE (NEGATIVE); OCCULT BLOOD URINE NEGATIVE (NEGATIVE); PROTEIN URINE TRACE (NEGATIVE); SPECIFIC GRAVITY URINE 1.021 (1.005-1.030)
[2021-05-27 19:30] LABS: *AMPHETAMINES SCREEN URINE NEGATIVE (NEGATIVE); *BARBITURATES SCREEN URINE NEGATIVE (NEGATIVE); *BENZODIAZEPINES SCREEN URINE NEGATIVE (NEGATIVE); *COCAINE SCREEN URINE NEGATIVE (NEGATIVE); METHADONE URINE SCREEN NEGATIVE (NEGATIVE)
[2021-05-27 19:31] LABS: CANNABINOID URINE SCREEN NEGATIVE (NEGATIVE); OPIATES URINE SCREEN NEGATIVE (NEGATIVE); PHENCYCLIDINE URINE SCREEN NEGATIVE (NEGATIVE)
[2021-05-27] MEDS ORDERED: CEFTRIAXONE 2 G PREMIX 50 ML IV ONE (20:15)
[2021-05-27] MEDS ORDERED: CYCLOBENZAPRINE 10MG TABLET PO SCH (20:15)
[2021-05-27] MEDS ORDERED: DIPHENHYDRAMINE 50MG/ML VIAL IV PRN (21:00)
[2021-05-27] MEDS ORDERED: CLONIDINE 0.1MG TABLET PO PRN (21:00)
[2021-05-27] MEDS ORDERED: CEFTRIAXONE 1 G PREMIX 50 ML IV SCH (21:00)
[2021-05-27] MEDS ORDERED: ONDANSETRON HCL 4MG/2ML INJ IV PRN (21:00)
[2021-05-27] MEDS ORDERED: CEFTRIAXONE 2 G in DEXTROSE 5% WATER 50 ML IV NR (21:00)
[2021-05-27] MEDS ORDERED: IPRATROPIUM/ALBUTEROL 0.5-3(2.5)MG/3ML NEB HHN PRN (21:00)
[2021-05-27 23:15] VITALS: BP 133/59
[2021-05-27 23:29] LABS: FOLIC ACID (FOLATE) SERUM 6.2 ng/mL (>5.38)
[2021-05-28] MEDS: HYDROCODONE/ACETAMINOPHEN 5/325MG TABLET PO PRN ×3 (00:47→16:51)
[2021-05-28 04:00] VITALS: BP 136/66
[2021-05-28 06:02] LABS: BASOPHILS % 0.4 % (0.0-2.0); EOSINOPHILS % 1.9 % (0.0-5.0); HEMATOCRIT. 35.6 % (42.0-52.0); HEMOGLOBIN. 11.7 g/dL (14.0-18.0); LYMPHOCYTES % 31.5 % (20.0-50.0); MEAN CORPUSCULAR HEMOGLOBIN 34.4 pg (28.0-32.0); MEAN CORPUSCULAR VOLUME 104.5 fL (80.0-94.0); MEAN PLATELET VOLUME 9.5 fl (7.4-10.4); NEUTROPHILS % 55.2 % (40.0-76.0); PLATELET 152 x1000/uL (130-400); RED CELL DISTRIBUTION WIDTH 14.7 % (11.6-14.6)
[2021-05-28 06:18] LABS: CHLORIDE 108 mEq/L (98-107)
[2021-05-28 06:44] LABS: CREATINE KINASE MB FRACTION 2.5 ng/mL (0.5-3.6)
[2021-05-28 08:00] VITALS: BP 114/54
[2021-05-28 12:00] VITALS: BP 125/68
[2021-05-28] MEDS ORDERED: INFLUENZA VACCINE 05/PF 0.5 ML SYRINGE IM ONE (12:00)
[2021-05-28 16:00] VITALS: BP 130/71
[2021-05-28 20:00] VITALS: BP 129/60
[2021-05-28] MEDS ORDERED: CEFTRIAXONE 1,000 MG in DEXTROSE 5% WATER 50 ML IV SCH (21:00)
[2021-05-29] VITALS: BP 133/77
[2021-05-29 04:00] VITALS: BP 150/79
[2021-05-29] MEDS: HYDROCODONE/ACETAMINOPHEN 5/325MG TABLET PO PRN (07:55)
[2021-05-29 08:00] VITALS: BP 157/48
[2021-05-29 12:00] VITALS: BP 129/60
[2021-05-29 14:15] VITALS: BP 129/60
[2021-05-29 16:27] VITALS: BP 122/74
== END 2021-05-29 16:32 | disposition home or self-care (01) | DRG 351 ==
LOC: ER 16:29 → EDBEDREQSVC 19:25 → EDBEDREQ 19:25 → EDBEDREQTM 19:25 → ENRESERV 21:06 → 6WST 23:32
PROVIDERS: ADMIT Internal Medicine; ATTEND Internal Medicine
DX: M62.82 Rhabdomyolysis (principal); G20 Parkinson's disease; R56.9 Unspecified convulsions; F17.200 Nicotine dependence, unspecified, uncomplicated; M54.2 Cervicalgia; N39.0 Urinary tract infection, site not specified; I10 Essential (primary) hypertension; W18.39XA Other fall on same level, initial encounter; Z88.6 Allergy status to analgesic agent; Z88.1 Allergy status to other antibiotic agents; Z88.5 Allergy status to narcotic agent; Z88.8 Allergy status to other drugs, medicaments and biological substances; Z79.899 Other long term (current) drug therapy; Z82.49 Family history of ischemic heart disease and other diseases of the circulatory system; Y93.89 Activity, other specified; Y92.89 Other specified places as the place of occurrence of the external cause; Y99.8 Other external cause status
CPT/HCPCS: 36415; 71045; 73030; 73060; 73070; 80053; 80305; 80320; 81003; 82550; 82553; 82607; 82746; 82962; 84443; 84484; 85025; 85044; 90686; 93970; 99285; J0696; J7030; J7060; G0480

== ENCOUNTER 2021-09-29 16:12 | Emergency (ER) | payer MEDICARE, MEDICAID ==
[~2021-09-29] VITALS: Ht 175.3 cm; Wt 77.0 kg
[~2021-09-29 16:12] MED LIST changes: -AMLO10TA4; -AMLO10TA80 PO; -CARB/LEVO PO; -CLON0.1T14; -CLOP75TA33 PO; -DEPAK2; -DIVA250T45 PO; -DIVAL250; -KEPP250; -LAM25; -LEVE10006 PO; -LEVE250T2; -LEVO100T9 PO; -LEVO100V4; -LEVO75TA7; -LISINOPRIL; -LURA120T MT; -LURA40TA PO; -MIRT45TA83 PO; -MIRTAZAPINE; -MYLAN; -NICO-645 TP; -PANT40TA51; -POLY119P2 MT; -QUET300T20 PO; -TC025U80; -VITAMIN D; -ZIPR60CA2; -ZIPR80CA2; -ZOLP10TA2 PO
[2021-09-29 17:09] LABS: HEMATOCRIT. 39.4 % (42.0-52.0); HEMOGLOBIN. 13.3 g/dL (14.0-18.0); MEAN CORPUSCULAR HEMOGLOBIN 34.8 pg (28.0-32.0); MEAN CORPUSCULAR VOLUME 103.3 fL (80.0-94.0); MEAN PLATELET VOLUME 8.9 fl (7.4-10.4); PLATELET 148 x1000/uL (130-400); RED BLOOD CELL COUNT 3.81 mill/uL (4.7-6.1); RED CELL DISTRIBUTION WIDTH 13.4 % (11.6-14.6)
[2021-09-29 17:14] LABS: CHLORIDE 108 mEq/L (98-107)
[2021-09-29 17:17] LABS: PROTHROMBIN TIME 10.9 sec (9.6-11.0)
[2021-09-29 17:40] LABS: PLATELET ESTIMATE NORMAL
[2021-09-29] MEDS ORDERED: LIDO700A15 TP (18:53)
[2021-09-29] MEDS ORDERED: LIDOCAINE 5% PATCH TOP SCH (19:00)
[2021-09-30 10:49] VITALS: BP 109/54
== END 2021-09-30 10:50 | disposition home or self-care (01) ==
LOC: ER 16:12
DX: M54.6 Pain in thoracic spine (principal); D64.9 Anemia, unspecified; F03.90 Unspecified dementia, unspecified severity, without behavioral disturbance, psychotic disturbance, mood disturbance, and anxiety; I11.9 Hypertensive heart disease without heart failure; G40.909 Epilepsy, unspecified, not intractable, without status epilepticus; Z86.73 Personal history of transient ischemic attack (TIA), and cerebral infarction without residual deficits; Z88.5 Allergy status to narcotic agent; Z88.6 Allergy status to analgesic agent; W01.0XXA Fall on same level from slipping, tripping and stumbling without subsequent striking against object, initial encounter; Y93.89 Activity, other specified; Y92.018 Other place in single-family (private) house as the place of occurrence of the external cause
CPT/HCPCS: 36415; 71045; 72128; 72131; 80053; 84484; 85025; 93005; 99285

== ENCOUNTER 2021-11-25 14:34 | Inpatient (IN) | payer MEDICARE, MEDICAID ==
[~2021-11-25] VITALS: Ht 182.9 cm; Wt 59.9 kg
[~2021-11-25 14:34] MED LIST changes: -AMAN100C16 PO; +AMAN100C18 PO; +LIDO700A15 TP; -LISI10TA26
[2021-11-25 17:36] LABS: BASOPHILS % 0.5 % (0.0-2.0); EOSINOPHILS % 0.6 % (0.0-5.0); LYMPHOCYTES % 24.9 % (20.0-50.0); MEAN CORPUSCULAR VOLUME 102.5 fL (80.0-94.0); MONOCYTES % 11.9 % (2.0-8.0); NEUTROPHILS % 62.1 % (40.0-76.0); PLATELET 203 x1000/uL (130-400); RED BLOOD CELL COUNT 3.71 mill/uL (4.7-6.1); RED CELL DISTRIBUTION WIDTH 13.9 % (11.6-14.6)
[2021-11-25 17:48] LABS: CHLORIDE 110 mEq/L (98-107)
[2021-11-25] MEDS ORDERED: SODIUM CHLORIDE 0.9% 1,000 ML IV ONE ×2 (18:00→20:30)
[2021-11-25 18:07] LABS: CREATINE KINASE 1971 IU/L (39-308); ETHANOL BLOOD < 10 mg/dL
[2021-11-25 18:59] LABS: CLARITY URINE CLEAR (CLEAR); COLOR URINE YELLOW (YELLOW); KETONES URINE 1+ (NEGATIVE); LEUKOCYTE ESTERASE URINE NEGATIVE (NEGATIVE); NITRITE URINE NEGATIVE (NEGATIVE); OCCULT BLOOD URINE NEGATIVE (NEGATIVE); PH URINE 5.5 (4.5-8.0); PROTEIN URINE 1+ (NEGATIVE); SPECIFIC GRAVITY URINE 1.022 (1.005-1.030)
[2021-11-25 19:04] LABS: *AMPHETAMINES SCREEN URINE NEGATIVE (NEGATIVE); *BARBITURATES SCREEN URINE NEGATIVE (NEGATIVE); *BENZODIAZEPINES SCREEN URINE NEGATIVE (NEGATIVE); *COCAINE SCREEN URINE NEGATIVE (NEGATIVE); CANNABINOID URINE SCREEN NEGATIVE (NEGATIVE); METHADONE URINE SCREEN NEGATIVE (NEGATIVE); OPIATES URINE SCREEN NEGATIVE (NEGATIVE); PHENCYCLIDINE URINE SCREEN NEGATIVE (NEGATIVE)
[2021-11-26] MEDS ORDERED: CLONIDINE 0.1MG TABLET PO PRN (02:30)
[2021-11-26] MEDS ORDERED: LORAZEPAM 2MG/ML CPJ IV PRN (02:30)
[2021-11-26 02:44] VITALS: BP 141/56
[2021-11-26 04:00] VITALS: BP 138/65
[2021-11-26 07:33] LABS: BASOPHILS % 0.4 % (0.0-2.0); EOSINOPHILS % 1.3 % (0.0-5.0); HEMATOCRIT. 36.3 % (42.0-52.0); HEMOGLOBIN. 12.2 g/dL (14.0-18.0); LYMPHOCYTES % 30.4 % (20.0-50.0); MEAN CORPUSCULAR HEMOGLOBIN 34.9 pg (28.0-32.0); MEAN PLATELET VOLUME 9.2 fl (7.4-10.4); MONOCYTES % 12.3 % (2.0-8.0); NEUTROPHILS % 55.6 % (40.0-76.0); PLATELET 152 x1000/uL (130-400); RED BLOOD CELL COUNT 3.49 mill/uL (4.7-6.1); RED CELL DISTRIBUTION WIDTH 14.6 % (11.6-14.6)
[2021-11-26 08:00] VITALS: BP 116/60
[2021-11-26] MEDS ORDERED: ENOXAPARIN 40MG/0.4ML SYR SUBCUT SCH (09:00)
[2021-11-26] MEDS ORDERED: AMAN100C18 PO (10:44)
[2021-11-26] MEDS ORDERED: CARB-298 PO (11:34)
[2021-11-26] MEDS ORDERED: NON FORMULARY PATIENT HOME MED PO SCH (11:45)
[2021-11-26 12:00] VITALS: BP 120/68
[2021-11-26] MEDS: CLOPIDOGREL 75MG TABLET PO SCH (12:39)
[2021-11-26] MEDS: FAMOTIDINE 20MG TABLET PO SCH (12:39)
[2021-11-26] MEDS: CARBIDOPA/LEVODOPA 10/100MG TABLET PO SCH ×2 (12:40→17:26)
[2021-11-26] MEDS: DEXTROSE 5% WATER 1,000 ML IV SCH ×2 (12:41→20:11)
[2021-11-26] MEDS: DIVALPROEX SODIUM 250MG DR TABLET PO SCH ×2 (14:03→20:11)
[2021-11-26] MEDS: AMANTADINE HCL 100 MG CAPSULE PO SCH ×2 (14:10→17:26)
[2021-11-26 17:11] VITALS: BP 131/67
[2021-11-26 20:00] VITALS: BP 137/71
[2021-11-26] MEDS: ATORVASTATIN CALCIUM 40MG TABLET PO SCH (20:11)
[2021-11-26] MEDS: QUETIAPINE FUMARATE 25MG TABLET PO SCH (20:11)
[2021-11-26] MEDS: MIRTAZAPINE 15MG TABLET PO SCH (20:11)
[2021-11-26] MEDS: LEVETIRACETAM 500MG TABLET PO SCH (20:12)
[2021-11-26] MEDS: AMLODIPINE 5MG TABLET PO SCH (20:12)
[2021-11-26] MEDS ORDERED: ATORVASTATIN CALCIUM 40MG TABLET PO SCH (21:00)
[2021-11-27] VITALS: BP 125/53
[2021-11-27] MEDS ORDERED: VANCOMYCIN 750MG PREMIX 150 ML IV SCH (01:00)
[2021-11-27 04:00] VITALS: BP 142/71
[2021-11-27] MEDS: DEXTROSE 5% WATER 1,000 ML IV SCH ×2 (05:15→16:28)
[2021-11-27] MEDS: DIVALPROEX SODIUM 250MG DR TABLET PO SCH ×3 (05:15→20:07)
[2021-11-27] MEDS: LEVOTHYROXINE SODIUM 25MCG TABLET PO SCH (06:14)
[2021-11-27 07:02] LABS: BASOPHILS % 0.6 % (0.0-2.0); EOSINOPHILS % 2.6 % (0.0-5.0); HEMATOCRIT. 35.6 % (42.0-52.0); LYMPHOCYTES % 51.6 % (20.0-50.0); MEAN CORPUSCULAR HEMOGLOBIN 34.7 pg (28.0-32.0); MEAN CORPUSCULAR VOLUME 103.3 fL (80.0-94.0); MEAN PLATELET VOLUME 9.9 fl (7.4-10.4); NEUTROPHILS % 36.2 % (40.0-76.0); PLATELET 182 x1000/uL (130-400); RED BLOOD CELL COUNT 3.45 mill/uL (4.7-6.1); RED CELL DISTRIBUTION WIDTH 14.7 % (11.6-14.6)
[2021-11-27 08:00] VITALS: BP 101/55
[2021-11-27] MEDS: CLOPIDOGREL 75MG TABLET PO SCH (08:16)
[2021-11-27] MEDS: AMANTADINE HCL 100 MG CAPSULE PO SCH ×2 (08:16→16:28)
[2021-11-27] MEDS: LAMOTRIGINE 100MG TABLET PO SCH (08:16)
[2021-11-27] MEDS: CARBIDOPA/LEVODOPA 10/100MG TABLET PO SCH ×2 (08:16→16:28)
[2021-11-27] MEDS: LEVETIRACETAM 500MG TABLET PO SCH ×2 (08:16→20:07)
[2021-11-27] MEDS: FAMOTIDINE 20MG TABLET PO SCH (08:16)
[2021-11-27] MEDS: LISINOPRIL 10MG TABLET PO SCH (08:17)
[2021-11-27] MEDS: AMLODIPINE 5MG TABLET PO SCH ×2 (08:17→20:08)
[2021-11-27] MEDS: ENOXAPARIN 30MG/0.3ML SYR SUBCUT SCH (08:17)
[2021-11-27] MEDS: LIDOCAINE 5% PATCH TOP SCH (08:18)
[2021-11-27 08:53] LABS: CHLORIDE 105 mEq/L (98-107)
[2021-11-27 12:00] VITALS: BP 121/55
[2021-11-27] MEDS: VANCOMYCIN 750 MG in DEXT 5% WATER 250 ML IV SCH ×2 (12:41→20:07)
[2021-11-27 16:00] VITALS: BP 121/68
[2021-11-27 20:00] VITALS: BP 112/64
[2021-11-27] MEDS: ATORVASTATIN CALCIUM 40MG TABLET PO SCH (20:07)
[2021-11-27] MEDS: QUETIAPINE FUMARATE 25MG TABLET PO SCH (20:07)
[2021-11-27] MEDS: MIRTAZAPINE 15MG TABLET PO SCH (20:07)
[2021-11-28] VITALS: BP 116/77
[2021-11-28 04:00] VITALS: BP 120/78
[2021-11-28] MEDS: DIVALPROEX SODIUM 250MG DR TABLET PO SCH ×3 (05:19→21:34)
[2021-11-28] MEDS: DEXTROSE 5% WATER 1,000 ML IV SCH ×3 (05:20→21:34)
[2021-11-28] MEDS: LEVOTHYROXINE SODIUM 25MCG TABLET PO SCH (06:44)
[2021-11-28 07:14] LABS: CHLORIDE 107 mEq/L (98-107)
[2021-11-28 07:55] VITALS: BP 120/66
[2021-11-28] MEDS: FAMOTIDINE 20MG TABLET PO SCH (08:32)
[2021-11-28] MEDS: AMLODIPINE 5MG TABLET PO SCH ×2 (08:32→21:33)
[2021-11-28] MEDS: LAMOTRIGINE 100MG TABLET PO SCH (08:32)
[2021-11-28] MEDS: AMANTADINE HCL 100 MG CAPSULE PO SCH ×2 (08:32→16:10)
[2021-11-28] MEDS: CARBIDOPA/LEVODOPA 10/100MG TABLET PO SCH ×2 (08:32→16:10)
[2021-11-28] MEDS: ENOXAPARIN 30MG/0.3ML SYR SUBCUT SCH (08:33)
[2021-11-28] MEDS: LIDOCAINE 5% PATCH TOP SCH (08:33)
[2021-11-28] MEDS: LISINOPRIL 10MG TABLET PO SCH (08:33)
[2021-11-28] MEDS: LEVETIRACETAM 500MG TABLET PO SCH ×3 (08:35→21:31)
[2021-11-28] MEDS: CLOPIDOGREL 75MG TABLET PO SCH (08:35)
[2021-11-28] MEDS: VANCOMYCIN 750 MG in DEXT 5% WATER 250 ML IV SCH (11:37)
[2021-11-28 11:49] VITALS: BP 104/48
[2021-11-28 15:39] VITALS: BP 117/64
[2021-11-28 20:00] VITALS: BP 132/54
[2021-11-28] MEDS: ATORVASTATIN CALCIUM 40MG TABLET PO SCH (21:32)
[2021-11-28] MEDS: QUETIAPINE FUMARATE 25MG TABLET PO SCH (21:33)
[2021-11-28] MEDS: MIRTAZAPINE 15MG TABLET PO SCH (21:33)
[2021-11-28] MEDS ORDERED: VANCOMYCIN 750 MG in DEXT 5% WATER 250 ML IV SCH (22:00)
[2021-11-29] VITALS: BP 137/67
[2021-11-29 04:00] VITALS: BP 133/64
[2021-11-29] MEDS: DIVALPROEX SODIUM 250MG DR TABLET PO SCH ×3 (06:08→21:11)
[2021-11-29] MEDS: LEVOTHYROXINE SODIUM 25MCG TABLET PO SCH (06:09)
[2021-11-29 08:00] VITALS: BP 114/54
[2021-11-29] MEDS: DEXTROSE 5% WATER 1,000 ML IV SCH (08:00)
[2021-11-29] MEDS: LISINOPRIL 10MG TABLET PO SCH (08:20)
[2021-11-29] MEDS: AMLODIPINE 5MG TABLET PO SCH ×2 (08:20→21:11)
[2021-11-29] MEDS: LAMOTRIGINE 100MG TABLET PO SCH (08:23)
[2021-11-29] MEDS: ENOXAPARIN 30MG/0.3ML SYR SUBCUT SCH (08:23)
[2021-11-29] MEDS: LIDOCAINE 5% PATCH TOP SCH (08:23)
[2021-11-29] MEDS: FAMOTIDINE 20MG TABLET PO SCH (08:23)
[2021-11-29] MEDS: LEVETIRACETAM 500MG TABLET PO SCH ×2 (08:23→21:11)
[2021-11-29] MEDS: AMANTADINE HCL 100 MG CAPSULE PO SCH ×2 (08:23→16:26)
[2021-11-29] MEDS: CLOPIDOGREL 75MG TABLET PO SCH (08:23)
[2021-11-29] MEDS: CARBIDOPA/LEVODOPA 10/100MG TABLET PO SCH ×2 (08:24→16:26)
[2021-11-29 12:00] VITALS: BP 110/61
[2021-11-29 16:00] VITALS: BP 121/64
[2021-11-29 20:00] VITALS: BP 126/65
[2021-11-29] MEDS: ATORVASTATIN CALCIUM 40MG TABLET PO SCH (21:10)
[2021-11-29] MEDS: QUETIAPINE FUMARATE 25MG TABLET PO SCH (21:11)
[2021-11-29] MEDS: MIRTAZAPINE 15MG TABLET PO SCH (21:11)
[2021-11-30] VITALS: BP 119/67
[2021-11-30 04:00] VITALS: BP 118/64
[2021-11-30] MEDS: DIVALPROEX SODIUM 250MG DR TABLET PO SCH ×3 (05:57→20:33)
[2021-11-30] MEDS: LEVOTHYROXINE SODIUM 25MCG TABLET PO SCH (05:57)
[2021-11-30 08:00] VITALS: BP 147/59
[2021-11-30] MEDS: ENOXAPARIN 30MG/0.3ML SYR SUBCUT SCH (08:17)
[2021-11-30] MEDS: CLOPIDOGREL 75MG TABLET PO SCH (08:17)
[2021-11-30] MEDS: FAMOTIDINE 20MG TABLET PO SCH (08:17)
[2021-11-30] MEDS: CARBIDOPA/LEVODOPA 10/100MG TABLET PO SCH ×2 (08:17→17:05)
[2021-11-30] MEDS: AMANTADINE HCL 100 MG CAPSULE PO SCH ×2 (08:17→17:05)
[2021-11-30] MEDS: LEVETIRACETAM 500MG TABLET PO SCH ×2 (08:17→20:32)
[2021-11-30] MEDS: LAMOTRIGINE 100MG TABLET PO SCH (08:17)
[2021-11-30] MEDS: AMLODIPINE 5MG TABLET PO SCH ×2 (08:18→20:32)
[2021-11-30] MEDS: LISINOPRIL 10MG TABLET PO SCH (08:18)
[2021-11-30] MEDS: LIDOCAINE 5% PATCH TOP SCH (08:19)
[2021-11-30 12:00] VITALS: BP 111/66
[2021-11-30 16:00] VITALS: BP_SYST 115; BP_SYST 128; BP_DIAS 47; BP_DIAS 65
[2021-11-30 20:00] VITALS: BP 115/47
[2021-11-30] MEDS: ATORVASTATIN CALCIUM 40MG TABLET PO SCH (20:32)
[2021-11-30] MEDS: QUETIAPINE FUMARATE 25MG TABLET PO SCH (20:33)
[2021-11-30] MEDS: MIRTAZAPINE 15MG TABLET PO SCH (20:33)
== END 2021-11-30 22:03 | DRG 52 ==
LOC: ER 14:34 → MICUSO 20:22 → EDBEDREQ 20:40 → EDBEDREQTM 20:40 → 8WST 11-26 01:35
PROVIDERS: ADMIT Internal Medicine; ATTEND Internal Medicine
DX: G93.41 Metabolic encephalopathy (principal); N17.0 Acute kidney failure with tubular necrosis; E87.0 Hyperosmolality and hypernatremia; M62.82 Rhabdomyolysis; F03.90 Unspecified dementia, unspecified severity, without behavioral disturbance, psychotic disturbance, mood disturbance, and anxiety; G40.909 Epilepsy, unspecified, not intractable, without status epilepticus; F17.200 Nicotine dependence, unspecified, uncomplicated; D64.9 Anemia, unspecified; E78.00 Pure hypercholesterolemia, unspecified; Z20.822 Contact with and (suspected) exposure to COVID-19; E87.1 Hypo-osmolality and hyponatremia; E87.8 Other disorders of electrolyte and fluid balance, not elsewhere classified; I10 Essential (primary) hypertension; Z88.6 Allergy status to analgesic agent; Z88.8 Allergy status to other drugs, medicaments and biological substances; Z79.899 Other long term (current) drug therapy
CPT/HCPCS: 36415; 71045; 80048; 80053; 80202; 80305; 80320; 81003; 82140; 82550; 83605; 83880; 84443; 84484; 85025; 87077; 87426; 93005; 97162; 97166; 97535; 99285; J1650; J3370; J7060; J7070; G0480

== ENCOUNTER 2022-01-10 23:27 | Inpatient (IN) | payer MEDICARE, MEDICAID ==
[~2022-01-10] VITALS: Ht 188 cm; Wt 65.8 kg
[~2022-01-10 23:27] MED LIST changes: +CARB-298 PO; -CARB-31 MT
[2022-01-11 01:31] LABS: HEMATOCRIT. 39.3 % (42.0-52.0); HEMOGLOBIN. 13.2 g/dL (14.0-18.0); MEAN CORPUSCULAR HEMOGLOBIN 35.5 pg (28.0-32.0); MEAN CORPUSCULAR VOLUME 105.8 fL (80.0-94.0); MEAN PLATELET VOLUME 9.6 fl (7.4-10.4); PLATELET 130 x1000/uL (130-400); RED BLOOD CELL COUNT 3.72 mill/uL (4.7-6.1); RED CELL DISTRIBUTION WIDTH 15.1 % (11.6-14.6)
[2022-01-11 01:35] LABS: CHLORIDE 109 mEq/L (98-107)
[2022-01-11 01:52] LABS: ETHANOL BLOOD < 10 mg/dL
[2022-01-11 05:18] LABS: PLATELET ESTIMATE NORMAL
[2022-01-11] MEDS ORDERED: HYDROCODONE/ACETAMINOPHEN 5/325MG TABLET PO PRN (12:00)
[2022-01-11] MEDS ORDERED: IPRATROPIUM/ALBUTEROL 0.5-3(2.5)MG/3ML NEB HHN PRN (12:00)
[2022-01-11] MEDS ORDERED: DOCUSATE SODIUM 100MG CAPSULE PO PRN (12:00)
[2022-01-11] MEDS: LEVOTHYROXINE SODIUM 25MCG TABLET PO SCH (12:00)
[2022-01-11] MEDS ORDERED: LORAZEPAM 0.5MG TABLET PO PRN (12:00)
[2022-01-11] MEDS ORDERED: CLONIDINE 0.1MG TABLET PO PRN (12:00)
[2022-01-11] MEDS: CARBIDOPA/LEVODOPA 10/100MG TABLET PO SCH ×2 (12:00→21:55)
[2022-01-11] MEDS ORDERED: ONDANSETRON HCL 4MG/2ML INJ IV PRN (12:00)
[2022-01-11] MEDS ORDERED: ACETAMINOPHEN 325MG TABLET PO PRN ×2 (12:00)
[2022-01-11] MEDS: SODIUM CHLORIDE 0.9% 1,000 ML IV SCH (12:30)
[2022-01-11] MEDS: CLOPIDOGREL 75MG TABLET PO SCH (12:30)
[2022-01-11] MEDS: DIVALPROEX SODIUM 250MG DR TABLET PO SCH ×2 (15:20→22:49)
[2022-01-11 15:50] VITALS: BP 153/79
[2022-01-11 16:00] VITALS: BP 153/79
[2022-01-11 17:47] LABS: CHLORIDE 109 mEq/L (98-107)
[2022-01-11 18:01] LABS: T4 FREE 0.16 ng/dL (0.76-1.46)
[2022-01-11 20:00] VITALS: BP 149/77
[2022-01-11] MEDS: LEVETIRACETAM 500MG TABLET PO SCH (21:55)
[2022-01-11] MEDS: AMLODIPINE 5MG TABLET PO SCH (21:55)
[2022-01-11] MEDS: ATORVASTATIN CALCIUM 40MG TABLET PO SCH (21:56)
[2022-01-11] MEDS: QUETIAPINE FUMARATE 25MG TABLET PO SCH (21:56)
[2022-01-11] MEDS: FAMOTIDINE 20MG TABLET PO SCH (21:56)
[2022-01-11] MEDS: AMANTADINE HCL 100 MG CAPSULE PO SCH (22:49)
[2022-01-12] VITALS: BP 131/79
[2022-01-12] MEDS: SODIUM CHLORIDE 0.9% 1,000 ML IV SCH ×2 (01:00→13:30)
[2022-01-12 04:00] VITALS: BP 147/78
[2022-01-12] MEDS: DIVALPROEX SODIUM 250MG DR TABLET PO SCH ×3 (06:58→21:25)
[2022-01-12] MEDS: LEVOTHYROXINE SODIUM 25MCG TABLET PO SCH (06:58)
[2022-01-12 08:00] VITALS: BP 128/76
[2022-01-12] MEDS: AMLODIPINE 5MG TABLET PO SCH ×2 (08:19→21:00)
[2022-01-12] MEDS: CLOPIDOGREL 75MG TABLET PO SCH (08:19)
[2022-01-12] MEDS: LEVETIRACETAM 500MG TABLET PO SCH ×2 (08:19→21:25)
[2022-01-12] MEDS: CARBIDOPA/LEVODOPA 10/100MG TABLET PO SCH ×2 (08:20→17:00)
[2022-01-12] MEDS: LAMOTRIGINE 100MG TABLET PO SCH (08:20)
[2022-01-12] MEDS: AMANTADINE HCL 100 MG CAPSULE PO SCH ×2 (08:20→21:24)
[2022-01-12 10:13] LABS: BASOPHILS % 0.4 % (0.0-2.0); EOSINOPHILS % 2.4 % (0.0-5.0); HEMATOCRIT. 41.8 % (42.0-52.0); HEMOGLOBIN. 14.1 g/dL (14.0-18.0); LYMPHOCYTES % 27.9 % (20.0-50.0); MEAN CORPUSCULAR HEMOGLOBIN 35.3 pg (28.0-32.0); MEAN CORPUSCULAR VOLUME 104.8 fL (80.0-94.0); MEAN PLATELET VOLUME 9.5 fl (7.4-10.4); MONOCYTES % 9.5 % (2.0-8.0); NEUTROPHILS % 59.8 % (40.0-76.0); PLATELET 137 x1000/uL (130-400); RED BLOOD CELL COUNT 3.99 mill/uL (4.7-6.1); RED CELL DISTRIBUTION WIDTH 15.1 % (11.6-14.6)
[2022-01-12 10:21] LABS: CHLORIDE 106 mEq/L (98-107)
[2022-01-12 12:00] VITALS: BP 119/67
[2022-01-12 16:00] VITALS: BP 127/59
[2022-01-12 20:51] VITALS: BP 92/53
[2022-01-12] MEDS: QUETIAPINE FUMARATE 25MG TABLET PO SCH (21:24)
[2022-01-12] MEDS: FAMOTIDINE 20MG TABLET PO SCH (21:24)
[2022-01-12] MEDS: ATORVASTATIN CALCIUM 40MG TABLET PO SCH (21:24)
[2022-01-13 00:43] VITALS: BP 101/53
[2022-01-13] MEDS: SODIUM CHLORIDE 0.9% 1,000 ML IV SCH ×2 (02:00→14:43)
[2022-01-13 04:45] VITALS: BP 113/63
[2022-01-13 07:33] LABS: BASOPHILS % 0.7 % (0.0-2.0); EOSINOPHILS % 5.3 % (0.0-5.0); HEMATOCRIT. 41.8 % (42.0-52.0); HEMOGLOBIN. 14.3 g/dL (14.0-18.0); LYMPHOCYTES % 55.6 % (20.0-50.0); MEAN CORPUSCULAR HEMOGLOBIN 35.8 pg (28.0-32.0); MEAN CORPUSCULAR VOLUME 104.9 fL (80.0-94.0); MONOCYTES % 8.5 % (2.0-8.0); NEUTROPHILS % 29.9 % (40.0-76.0); PLATELET 123 x1000/uL (130-400); RED BLOOD CELL COUNT 3.99 mill/uL (4.7-6.1); RED CELL DISTRIBUTION WIDTH 14.9 % (11.6-14.6)
[2022-01-13 07:48] LABS: CHLORIDE 105 mEq/L (98-107)
[2022-01-13 08:00] VITALS: BP 85/50
[2022-01-13] MEDS: AMLODIPINE 5MG TABLET PO SCH ×2 (09:00→21:00)
[2022-01-13] MEDS: LEVOTHYROXINE SODIUM 25MCG TABLET PO SCH (09:48)
[2022-01-13] MEDS: CARBIDOPA/LEVODOPA 10/100MG TABLET PO SCH ×2 (09:48→17:28)
[2022-01-13] MEDS: AMANTADINE HCL 100 MG CAPSULE PO SCH ×2 (09:48→23:20)
[2022-01-13] MEDS: LAMOTRIGINE 100MG TABLET PO SCH (09:48)
[2022-01-13] MEDS: LEVETIRACETAM 500MG TABLET PO SCH ×2 (09:49→23:17)
[2022-01-13] MEDS: CLOPIDOGREL 75MG TABLET PO SCH (09:49)
[2022-01-13 12:00] VITALS: BP 100/56
[2022-01-13] MEDS ORDERED: IBUPROFEN 400MG TABLET PO PRN (13:15)
[2022-01-13] MEDS: DIVALPROEX SODIUM 250MG DR TABLET PO SCH ×2 (14:43→23:19)
[2022-01-13 16:00] VITALS: BP 113/64
[2022-01-13 20:00] VITALS: BP 99/53
[2022-01-13] MEDS ORDERED: NALOXONE HCL 0.4MG/ML VIAL IV PRN (22:45)
[2022-01-13] MEDS: FAMOTIDINE 20MG TABLET PO SCH (23:17)
[2022-01-13] MEDS: ATORVASTATIN CALCIUM 40MG TABLET PO SCH (23:17)
[2022-01-13] MEDS: QUETIAPINE FUMARATE 25MG TABLET PO SCH (23:17)
[2022-01-14] MEDS: SODIUM CHLORIDE 0.9% 1,000 ML IV SCH ×2 (03:00→15:22)
[2022-01-14 04:00] VITALS: BP 126/72
[2022-01-14] MEDS: DIVALPROEX SODIUM 250MG DR TABLET PO SCH ×3 (06:29→23:20)
[2022-01-14] MEDS: LEVOTHYROXINE SODIUM 25MCG TABLET PO SCH (06:29)
[2022-01-14 08:00] VITALS: BP 127/67
[2022-01-14] MEDS: CARBIDOPA/LEVODOPA 10/100MG TABLET PO SCH ×2 (09:28→17:33)
[2022-01-14] MEDS: LAMOTRIGINE 100MG TABLET PO SCH (09:29)
[2022-01-14] MEDS: AMLODIPINE 5MG TABLET PO SCH ×2 (09:29→23:19)
[2022-01-14] MEDS: LEVETIRACETAM 500MG TABLET PO SCH ×2 (09:29→23:17)
[2022-01-14] MEDS: AMANTADINE HCL 100 MG CAPSULE PO SCH ×2 (09:29→23:20)
[2022-01-14] MEDS: CLOPIDOGREL 75MG TABLET PO SCH (09:29)
[2022-01-14 12:00] VITALS: BP 126/54
[2022-01-14 16:00] VITALS: BP 109/64
[2022-01-14 20:00] VITALS: BP 116/61
[2022-01-14] MEDS: ATORVASTATIN CALCIUM 40MG TABLET PO SCH (23:18)
[2022-01-14] MEDS: QUETIAPINE FUMARATE 25MG TABLET PO SCH (23:20)
[2022-01-14] MEDS: FAMOTIDINE 20MG TABLET PO SCH (23:20)
[2022-01-15 04:00] VITALS: BP 133/59
[2022-01-15] MEDS: SODIUM CHLORIDE 0.9% 1,000 ML IV SCH ×2 (04:00→15:44)
[2022-01-15] MEDS: DIVALPROEX SODIUM 250MG DR TABLET PO SCH ×3 (06:04→22:26)
[2022-01-15] MEDS: LEVOTHYROXINE SODIUM 25MCG TABLET PO SCH (06:12)
[2022-01-15 08:00] VITALS: BP 100/53
[2022-01-15] MEDS: AMLODIPINE 5MG TABLET PO SCH ×2 (09:00→22:27)
[2022-01-15] MEDS: AMANTADINE HCL 100 MG CAPSULE PO SCH ×2 (10:32→22:30)
[2022-01-15] MEDS: LAMOTRIGINE 100MG TABLET PO SCH (10:32)
[2022-01-15] MEDS: LEVETIRACETAM 500MG TABLET PO SCH ×2 (10:32→22:26)
[2022-01-15] MEDS: CARBIDOPA/LEVODOPA 10/100MG TABLET PO SCH ×2 (10:32→17:03)
[2022-01-15] MEDS: CLOPIDOGREL 75MG TABLET PO SCH (10:32)
[2022-01-15] MEDS ORDERED: LEVOTHYROXINE SODIUM 50MCG TABLET PO NR (11:15)
[2022-01-15 12:00] VITALS: BP 106/52
[2022-01-15 16:29] VITALS: BP 116/66
[2022-01-15 20:00] VITALS: BP 111/61
[2022-01-15] MEDS: FAMOTIDINE 20MG TABLET PO SCH (22:26)
[2022-01-15] MEDS: ATORVASTATIN CALCIUM 40MG TABLET PO SCH (22:26)
[2022-01-15] MEDS: QUETIAPINE FUMARATE 25MG TABLET PO SCH (22:26)
[2022-01-16] VITALS: BP 125/51
[2022-01-16 04:00] VITALS: BP 103/50
[2022-01-16] MEDS: SODIUM CHLORIDE 0.9% 1,000 ML IV SCH ×2 (04:27→17:30)
[2022-01-16] MEDS: DIVALPROEX SODIUM 250MG DR TABLET PO SCH ×3 (06:29→21:41)
[2022-01-16] MEDS: LEVOTHYROXINE SODIUM 75MCG TABLET PO SCH (06:29)
[2022-01-16 08:00] VITALS: BP 113/50
[2022-01-16] MEDS: LEVETIRACETAM 500MG TABLET PO SCH ×2 (09:36→21:35)
[2022-01-16] MEDS: CARBIDOPA/LEVODOPA 10/100MG TABLET PO SCH ×2 (09:36→17:25)
[2022-01-16] MEDS: CLOPIDOGREL 75MG TABLET PO SCH (09:37)
[2022-01-16] MEDS: LAMOTRIGINE 100MG TABLET PO SCH (09:37)
[2022-01-16] MEDS: AMANTADINE HCL 100 MG CAPSULE PO SCH ×2 (09:38→21:41)
[2022-01-16] MEDS: AMLODIPINE 5MG TABLET PO SCH ×2 (09:38→21:36)
[2022-01-16 12:00] VITALS: BP 116/62
[2022-01-16 16:22] VITALS: BP 104/59
[2022-01-16 20:00] VITALS: BP 117/70
[2022-01-16] MEDS: FAMOTIDINE 20MG TABLET PO SCH (21:35)
[2022-01-16] MEDS: ATORVASTATIN CALCIUM 40MG TABLET PO SCH (21:41)
[2022-01-16] MEDS: QUETIAPINE FUMARATE 25MG TABLET PO SCH (21:41)
[2022-01-17 04:00] VITALS: BP 132/95
[2022-01-17] MEDS: SODIUM CHLORIDE 0.9% 1,000 ML IV SCH ×2 (05:53→19:06)
[2022-01-17] MEDS: DIVALPROEX SODIUM 250MG DR TABLET PO SCH ×3 (06:04→22:03)
[2022-01-17] MEDS: LEVOTHYROXINE SODIUM 75MCG TABLET PO SCH (06:24)
[2022-01-17 08:00] VITALS: BP 110/68
[2022-01-17] MEDS: AMANTADINE HCL 100 MG CAPSULE PO SCH ×2 (09:38→22:00)
[2022-01-17 09:40] VITALS: BP 115/83
[2022-01-17] MEDS: LEVETIRACETAM 500MG TABLET PO SCH ×2 (09:42→22:00)
[2022-01-17] MEDS: CARBIDOPA/LEVODOPA 10/100MG TABLET PO SCH ×2 (09:42→17:33)
[2022-01-17] MEDS: LAMOTRIGINE 100MG TABLET PO SCH (09:42)
[2022-01-17] MEDS: CLOPIDOGREL 75MG TABLET PO SCH (09:43)
[2022-01-17] MEDS: AMLODIPINE 5MG TABLET PO SCH ×2 (09:43→22:04)
[2022-01-17 12:00] VITALS: BP 113/60
[2022-01-17 16:00] VITALS: BP 110/58
[2022-01-17] MEDS ORDERED: KEPP500 PO (17:16)
[2022-01-17] MEDS ORDERED: FAMO20TA8 MT (17:16)
[2022-01-17] MEDS ORDERED: AMLO5TAB88 PO (17:16)
[2022-01-17] MEDS ORDERED: CLOP75TA33 MT (17:16)
[2022-01-17] MEDS ORDERED: AMAN100C18 PO (17:16)
[2022-01-17] MEDS ORDERED: LEVO100T9 MT (17:16)
[2022-01-17] MEDS ORDERED: LAMO100T16 PO (17:16)
[2022-01-17] MEDS ORDERED: LIP40 PO (17:16)
[2022-01-17] MEDS ORDERED: QUET25TA MT (17:16)
[2022-01-17] MEDS ORDERED: CARB-298 PO (17:16)
[2022-01-17] MEDS ORDERED: DIVA250T4 PO (17:16)
[2022-01-17 20:00] VITALS: BP 136/61
[2022-01-17] MEDS: QUETIAPINE FUMARATE 25MG TABLET PO SCH (22:00)
[2022-01-17] MEDS: ATORVASTATIN CALCIUM 40MG TABLET PO SCH (22:00)
[2022-01-17] MEDS: FAMOTIDINE 20MG TABLET PO SCH (22:00)
[2022-01-18] VITALS: BP 104/81
[2022-01-18 04:00] VITALS: BP 129/64
[2022-01-18] MEDS: DIVALPROEX SODIUM 250MG DR TABLET PO SCH ×2 (06:20→13:42)
[2022-01-18] MEDS: LEVOTHYROXINE SODIUM 75MCG TABLET PO SCH (06:20)
[2022-01-18 06:31] LABS: BASOPHILS % 0.9 % (0.0-2.0); EOSINOPHILS % 7.5 % (0.0-5.0); HEMATOCRIT. 40.3 % (42.0-52.0); HEMOGLOBIN. 13.4 g/dL (14.0-18.0); LYMPHOCYTES % 55.8 % (20.0-50.0); MEAN CORPUSCULAR HEMOGLOBIN 35.4 pg (28.0-32.0); MEAN CORPUSCULAR VOLUME 106.6 fL (80.0-94.0); MEAN PLATELET VOLUME 9.8 fl (7.4-10.4); MONOCYTES % 7.3 % (2.0-8.0); NEUTROPHILS % 28.5 % (40.0-76.0); PLATELET 112 x1000/uL (130-400); RED BLOOD CELL COUNT 3.78 mill/uL (4.7-6.1); RED CELL DISTRIBUTION WIDTH 15.2 % (11.6-14.6)
[2022-01-18 06:37] LABS: CHLORIDE 107 mEq/L (98-107)
[2022-01-18] MEDS: SODIUM CHLORIDE 0.9% 1,000 ML IV SCH (07:00)
[2022-01-18 07:05] LABS: FOLIC ACID (FOLATE) SERUM 7.3 ng/mL (>5.38)
[2022-01-18 07:55] LABS: CORTISOL 10.4 ucg/dL
[2022-01-18 08:00] VITALS: BP 114/53
[2022-01-18] MEDS: LAMOTRIGINE 100MG TABLET PO SCH (08:43)
[2022-01-18] MEDS: CLOPIDOGREL 75MG TABLET PO SCH (08:43)
[2022-01-18] MEDS: AMLODIPINE 5MG TABLET PO SCH (08:43)
[2022-01-18] MEDS: CARBIDOPA/LEVODOPA 10/100MG TABLET PO SCH (08:43)
[2022-01-18] MEDS: LEVETIRACETAM 500MG TABLET PO SCH (08:43)
[2022-01-18] MEDS: AMANTADINE HCL 100 MG CAPSULE PO SCH (08:46)
[2022-01-18 12:00] VITALS: BP 113/68
[2022-01-18 14:03] VITALS: BP 113/68
== END 2022-01-18 15:50 | disposition home health service (06) | DRG 52 ==
LOC: ER 23:27 → MICUSO 01-11 03:45 → 6EST 01-11 16:09
PROVIDERS: ADMIT Internal Medicine; ATTEND Internal Medicine
DX: G93.49 Other encephalopathy (principal); D69.6 Thrombocytopenia, unspecified; N17.9 Acute kidney failure, unspecified; F02.80 Dementia in other diseases classified elsewhere, unspecified severity, without behavioral disturbance, psychotic disturbance, mood disturbance, and anxiety; G20 Parkinson's disease; Z20.822 Contact with and (suspected) exposure to COVID-19; F20.9 Schizophrenia, unspecified; D53.9 Nutritional anemia, unspecified; I48.91 Unspecified atrial fibrillation; E03.9 Hypothyroidism, unspecified; E78.00 Pure hypercholesterolemia, unspecified; I10 Essential (primary) hypertension; Z88.6 Allergy status to analgesic agent; Z88.3 Allergy status to other anti-infective agents; D75.89 Other specified diseases of blood and blood-forming organs; E83.51 Hypocalcemia
CPT/HCPCS: 36415; 71045; 80048; 80053; 80307; 80320; 80329; 82533; 82607; 82746; 84439; 84443; 84481; 85025; 86376; 87426; 93005; 97116; 97161; 97162; 99285; J7030; G0480

== ENCOUNTER 2022-05-07 17:12 | Emergency (ER) | payer MEDICARE, MEDICAID ==
[~2022-05-07] VITALS: Ht 180.3 cm; Wt 91.0 kg
[~2022-05-07 17:12] MED LIST changes: -ATOR40TA70 PO; +LEVO100T9 MT; -LEVO25TA7 PO; -LISI10TA26 PO; -PANT20TA17 MT
[2022-05-07] MEDS ORDERED: METHOCARBAMOL 500MG TABLET PO ONE (18:15)
[2022-05-07] MEDS ORDERED: METHOCARBAMOL 750MG TABLET PO SCH (22:00)
[2022-05-08 09:42] VITALS: BP 120/62
== END 2022-05-08 09:44 | disposition home or self-care (01) ==
LOC: ER 17:12
DX: M79.605 Pain in left leg (principal); M79.604 Pain in right leg; I10 Essential (primary) hypertension; E78.00 Pure hypercholesterolemia, unspecified; Z98.890 Other specified postprocedural states; Z88.6 Allergy status to analgesic agent; Z88.5 Allergy status to narcotic agent; Z79.899 Other long term (current) drug therapy; Z86.73 Personal history of transient ischemic attack (TIA), and cerebral infarction without residual deficits; Z86.59 Personal history of other mental and behavioral disorders
CPT/HCPCS: 73560; 99285

== ENCOUNTER 2024-03-28 12:36 | Inpatient (IN) | payer MEDICARE, OTHER ==
[~2024-03-28] VITALS: Ht 152.4 cm; Wt 59.0 kg
[~2024-03-28 12:36] MED LIST changes: +ATOR20TA65 PO; -CARB-298 PO; +CARB-324 PO; +CLOP-31 PO; -CLOP75TA33 MT; +DIVA-75 PO; -DIVA250T4 PO; +ESCI-7 PO; -FAMO20TA8 MT; +HYDR50TA39 PO; -KEPP500 PO; -LAMO100T16 PO; +LEVE500T19 PO; -LIDO700A15 TP; -LIP40 PO; -MIRT7.5T11 MT; -QUET25TA MT
[2024-03-28] MEDS: METOCLOPRAMIDE HCL 10MG/2ML VIAL IV ONE (13:48)
[2024-03-28 13:51] LABS: BASOPHILS % 0.4 % (0.0-2.0); DIFFERENTIAL COMMENT 0; EOSINOPHILS % 2.7 % (0.0-5.0); HEMATOCRIT. 41.5 % (42.0-52.0); HEMOGLOBIN. 13.5 g/dL (14.0-18.0); LYMPHOCYTES % 29.9 % (20.0-50.0); MEAN CORPUSCULAR HEMOGLOBIN 33.8 pg (28.0-32.0); MEAN CORPUSCULAR HGB CONC 32.5 g/dL (31.0-37.0); MEAN CORPUSCULAR VOLUME 104.1 fL (80.0-94.0); MEAN PLATELET VOLUME 8.7 fl (7.4-10.4); MONOCYTES % 10.7 % (2.0-8.0); NEUTROPHILS % 56.3 % (40.0-76.0); PLATELET 173 x1000/uL (130-400); RED BLOOD CELL COUNT 3.99 mill/uL (4.7-6.1); RED CELL DISTRIBUTION WIDTH 15.6 % (11.6-14.6); WHITE BLOOD COUNT 5.8 x1000/uL (4.5-11.0)
[2024-03-28 13:52] LABS: CHLORIDE 101 mEq/L (98-107); POTASSIUM 4.3 mEq/L (3.5-5.1); SODIUM 134 mEq/L (136-145)
[2024-03-28 13:53] LABS: CALCIUM 9.3 mg/dL (8.7-10.4); CARBON DIOXIDE 30 mEq/L (21-32)
[2024-03-28 13:58] LABS: GLUCOSE 85 mg/dL (70-105)
[2024-03-28 13:59] LABS: TROPONIN I HIGH SENSITIVITY 5 ng/L (3.0-53)
[2024-03-28 14:00] LABS: ALANINE AMINOTRANSFERASE < 7 IU/L (10-49); ASPARTATE AMINOTRANSFERASE 16 IU/L (<34); BILIRUBIN DIRECT 0.2 mg/dL (<=3.0)
[2024-03-28 14:01] LABS: BILIRUBIN TOTAL 0.6 mg/dL (0.1-1.0); PROTEIN TOTAL 6.5 g/dL (6.0-8.3)
[2024-03-28 14:03] LABS: THYROID STIMULATING HORMONE 0.17 uIU/mL (0.55-4.78)
[2024-03-28 14:08] LABS: UREA NITROGEN BLOOD < 5 mg/dL (9-23)
[2024-03-28 14:19] LABS: PROTHROMBIN TIME 11.4 sec (9.6-11.0)
[2024-03-28] MEDS ORDERED: ONDANSETRON HCL 4MG/2ML INJ IV PRN (15:15)
[2024-03-28] MEDS ORDERED: DOCUSATE SODIUM 100MG CAPSULE PO PRN (15:15)
[2024-03-28] MEDS ORDERED: MAGNESIUM/ALUMINUM HYDROXIDE/SIMETHICONE 30ML UDC PO PRN (15:15)
[2024-03-28] MEDS ORDERED: ACETAMINOPHEN 325MG TABLET PO PRN ×2 (15:15)
[2024-03-28] MEDS ORDERED: GUAIFENESIN 200MG/10ML SUGAR FREE UDC PO PRN (15:15)
[2024-03-28] MEDS ORDERED: IPRATROPIUM/ALBUTEROL 0.5-3(2.5)MG/3ML NEB HHN PRN (15:15)
[2024-03-28] MEDS: AMANTADINE 100MG CAPSULE PO SCH (15:48)
[2024-03-28] MEDS: ENOXAPARIN 40MG/0.4ML SYR SUBCUT SCH (15:49)
[2024-03-28] MEDS: KETOROLAC 15MG/ML VIAL IV NR (15:59)
[2024-03-28] MEDS: CLONIDINE 0.1MG TABLET PO PRN (16:05)
[2024-03-28 17:11] LABS: IRON 166 ug/dL (65-175)
[2024-03-28 17:14] LABS: TOTAL IRON BINDING CAPACITY 154 ug/dl (250-425)
[2024-03-28 17:17] LABS: FERRITIN 45 ng/mL (22-322)
[2024-03-28 17:18] LABS: FOLIC ACID (FOLATE) SERUM 14.82 ng/mL (>5.38); VITAMIN B12 SERUM 482 pg/mL (211-911)
[2024-03-28 20:00] VITALS: BP 189/89; PULSE 48; RESP 18; TEMP 36.22512; O2SAT 100
[2024-03-28] MEDS: ATORVASTATIN CALCIUM 20MG TABLET PO SCH (21:28)
[2024-03-28] MEDS: DOCUSATE SODIUM 100MG CAPSULE PO SCH (21:28)
[2024-03-28] MEDS: LEVETIRACETAM 500MG TABLET PO SCH (21:28)
[2024-03-28] MEDS: FAMOTIDINE 20MG TABLET PO SCH (21:29)
[2024-03-28] MEDS: AMLODIPINE 5MG TABLET PO SCH (21:30)
[2024-03-28] MEDS: HYDRALAZINE HCL 50MG TABLET PO SCH (21:31)
[2024-03-28 23:07] LABS: CREATINE KINASE 103 IU/L (46-171)
[2024-03-28 23:25] VITALS: BP 189/88; PULSE 48; RESP 18; TEMP 36.2512
[2024-03-29] VITALS: BP 121/67; PULSE 63; RESP 18; TEMP 36.22512; O2SAT 100
[2024-03-29] MEDS: DIVALPROEX SODIUM 125MG SPRINKLE CAPSULE PO SCH (00:48)
[2024-03-29] MEDS: CARBIDOPA/LEVODOPA 25/100MG TABLET CR PO SCH (00:50)
[2024-03-29 04:00] VITALS: BP 155/83; PULSE 64; RESP 18; TEMP 36.22512; O2SAT 100
[2024-03-29 08:00] VITALS: BP 154/69; PULSE 51; RESP 19; TEMP 36.114
[2024-03-29] MEDS: MULTIVITAMINS,THER W-MINERALS TABLET PO SCH (09:14)
[2024-03-29] MEDS: FOLIC ACID 1MG TABLET PO SCH (09:14)
[2024-03-29] MEDS: LEVOTHYROXINE SODIUM 100MCG TABLET PO SCH (09:15)
[2024-03-29] MEDS: CLOPIDOGREL 75MG TABLET PO SCH (09:15)
[2024-03-29] MEDS: THIAMINE HCL 100MG TABLET PO SCH (09:15)
[2024-03-29] MEDS: KETOROLAC 30MG/ML VIAL IV NR (09:40)
[2024-03-29] MEDS: DIVALPROEX SODIUM 500MG DR TABLET PO SCH (12:00)
[2024-03-29 13:15] VITALS: BP 107/59; PULSE 72; RESP 18; TEMP 36.22512; O2SAT 100
[2024-03-29 16:00] VITALS: BP 120/69; PULSE 75; RESP 19; TEMP 36.44736; O2SAT 98
[2024-03-29 20:00] VITALS: BP 136/71; PULSE 64; RESP 18; TEMP 36.61404; O2SAT 100
[2024-03-29] MEDS: KETOROLAC 15MG/ML VIAL IV PRN (20:42)
[2024-03-30] VITALS: BP 140/82; PULSE 74; RESP 18; TEMP 36.22512; O2SAT 99
[2024-03-30 07:51] LABS: HEMATOCRIT 40.8 % (42.0-52.0); HEMOGLOBIN 13.7 g/dL (14.0-18.0); MEAN CORPUSCULAR HEMOGLOBIN 34.6 pg (28.0-32.0); MEAN CORPUSCULAR HGB CONC 33.6 g/dL (31.0-37.0); MEAN CORPUSCULAR VOLUME 102.8 fL (80.0-94.0); PLATELET 183 x1000/uL (130-400); RED BLOOD CELL COUNT 3.97 mill/uL (4.7-6.1); RED CELL DISTRIBUTION WIDTH 15.4 % (11.6-14.6)
[2024-03-30 07:54] LABS: CARBON DIOXIDE 27 mEq/L (21-32); CHLORIDE 102 mEq/L (98-107); POTASSIUM 4.1 mEq/L (3.5-5.1); SODIUM 134 mEq/L (136-145)
[2024-03-30 07:55] LABS: CALCIUM 9.3 mg/dL (8.7-10.4)
[2024-03-30 08:00] VITALS: BP 134/71; PULSE 74; RESP 19; TEMP 35.72508; O2SAT 96
[2024-03-30 08:00] LABS: CREATININE 1.2 mg/dL (0.6-1.3); GLUCOSE 78 mg/dL (70-105)
[2024-03-30 08:01] LABS: UREA NITROGEN BLOOD 12 mg/dL (9-23)
[2024-03-30] MEDS ORDERED: NALOXONE HCL 0.4MG/ML VIAL IV PRN (09:45)
[2024-03-30] MEDS: LORAZEPAM 2MG/ML INJ IV PRN (10:02)
[2024-03-30 11:30] VITALS: BP 119/66
[2024-03-30 16:00] VITALS: PULSE 63; RESP 20; TEMP 36.22512
[2024-03-30 20:00] VITALS: BP 106/55; PULSE 60; RESP 16; TEMP 36.05844; O2SAT 95
[2024-03-31] VITALS: BP 109/60; PULSE 72; RESP 18; TEMP 36.22512; O2SAT 99
[2024-03-31 04:00] VITALS: BP 134/77; PULSE 116; RESP 18; TEMP 36.28068; O2SAT 99
[2024-03-31] MEDS: HYDROCODONE/ACETAMINOPHEN 5/325MG TABLET PO PRN (06:32)
[2024-03-31 07:20] LABS: CHLORIDE 100 mEq/L (98-107); POTASSIUM 4.5 mEq/L (3.5-5.1); SODIUM 135 mEq/L (136-145)
[2024-03-31 07:21] LABS: CARBON DIOXIDE 31 mEq/L (21-32)
[2024-03-31 07:22] LABS: CALCIUM 9.5 mg/dL (8.7-10.4)
[2024-03-31 07:26] LABS: CREATININE 1.1 mg/dL (0.6-1.3); GLUCOSE 74 mg/dL (70-105)
[2024-03-31 07:27] LABS: UREA NITROGEN BLOOD 12 mg/dL (9-23)
[2024-03-31 07:45] LABS: HEMATOCRIT 42.5 % (42.0-52.0); HEMOGLOBIN 14.1 g/dL (14.0-18.0); MEAN CORPUSCULAR HEMOGLOBIN 34.4 pg (28.0-32.0); MEAN CORPUSCULAR HGB CONC 33.1 g/dL (31.0-37.0); MEAN CORPUSCULAR VOLUME 103.8 fL (80.0-94.0); PLATELET 174 x1000/uL (130-400); RED CELL DISTRIBUTION WIDTH 15.3 % (11.6-14.6); WHITE BLOOD COUNT 6.1 x1000/uL (4.5-11.0)
[2024-03-31 08:00] VITALS: BP 113/74; PULSE 75; RESP 20; TEMP 36.61404; O2SAT 100
[2024-03-31 12:00] VITALS: BP 97/63; PULSE 69; RESP 18; TEMP 36.114; O2SAT 100
[2024-03-31 16:00] VITALS: BP 93/55; PULSE 74; RESP 18; TEMP 35.5584; O2SAT 100
[2024-03-31 20:00] VITALS: BP 108/63; PULSE 61; RESP 18; TEMP 36.3918; O2SAT 99
[2024-04-01] VITALS: BP 115/73; PULSE 61; RESP 19; TEMP 36.6696; O2SAT 100
[2024-04-01 04:00] VITALS: BP 145/73; PULSE 70; RESP 20; TEMP 36.50292; O2SAT 100
[2024-04-01 06:54] LABS: CHLORIDE 101 mEq/L (98-107); HEMOGLOBIN 13.9 g/dL (14.0-18.0); MEAN CORPUSCULAR HEMOGLOBIN 34.7 pg (28.0-32.0); MEAN CORPUSCULAR VOLUME 105.1 fL (80.0-94.0); PLATELET 172 x1000/uL (130-400); POTASSIUM 4.4 mEq/L (3.5-5.1); RED BLOOD CELL COUNT 3.99 mill/uL (4.7-6.1); RED CELL DISTRIBUTION WIDTH 15.7 % (11.6-14.6); SODIUM 135 mEq/L (136-145); WHITE BLOOD COUNT 6.3 x1000/uL (4.5-11.0)
[2024-04-01 06:55] LABS: CALCIUM 9.8 mg/dL (8.7-10.4); CARBON DIOXIDE 27 mEq/L (21-32)
[2024-04-01 07:00] LABS: CREATININE 1.2 mg/dL (0.6-1.3); GLUCOSE 87 mg/dL (70-105); UREA NITROGEN BLOOD 13 mg/dL (9-23)
[2024-04-01 08:00] VITALS: BP 136/66; PULSE 65; RESP 20; TEMP 36.114; O2SAT 96
[2024-04-01 12:00] VITALS: BP 94/64; PULSE 66; TEMP 36.33624; O2SAT 97
[2024-04-01 20:00] VITALS: BP 121/71; PULSE 62; RESP 17; TEMP 36.28068; O2SAT 97
[2024-04-02] VITALS: BP 139/73; PULSE 68; TEMP 36.3918; O2SAT 95
[2024-04-02 04:00] VITALS: BP 143/68; PULSE 65; RESP 18; TEMP 36.55848; O2SAT 98
[2024-04-02 08:00] VITALS: BP 147/74; PULSE 76; RESP 18; TEMP 36.55848; O2SAT 98
[2024-04-02 11:57] VITALS: BP 138/70; PULSE 78; TEMP 97.9; O2SAT 98
[2024-04-02 12:00] VITALS: BP 138/70; PULSE 78; RESP 18; TEMP 36.61404; O2SAT 98
[2024-04-02 16:00] VITALS: BP 130/70; PULSE 76; RESP 18; TEMP 36.55848; O2SAT 98
== END 2024-04-02 16:47 | disposition home or self-care (01) | DRG 52 ==
LOC: ER 12:36 → EDBEDREQTM 14:59 → EDBEDREQ 14:59 → EDBEDREQSVC 14:59 → 6WST 17:20
PROVIDERS: ADMIT Preventive Medicine Clinical Informatics; ATTEND Preventive Medicine Clinical Informatics
DX: G92.8 Other toxic encephalopathy (principal); E87.1 Hypo-osmolality and hyponatremia; G20.A1 Parkinson's disease without dyskinesia, without mention of fluctuations; I10 Essential (primary) hypertension; F02.83 Dementia in other diseases classified elsewhere, unspecified severity, with mood disturbance; E03.9 Hypothyroidism, unspecified; D53.9 Nutritional anemia, unspecified; E78.5 Hyperlipidemia, unspecified; K59.00 Constipation, unspecified; E05.90 Thyrotoxicosis, unspecified without thyrotoxic crisis or storm; F41.9 Anxiety disorder, unspecified; R00.0 Tachycardia, unspecified; R63.4 Abnormal weight loss; G40.909 Epilepsy, unspecified, not intractable, without status epilepticus; E78.00 Pure hypercholesterolemia, unspecified; Z72.0 Tobacco use; Z79.02 Long term (current) use of antithrombotics/antiplatelets; Z79.899 Other long term (current) drug therapy; Z68.25 Body mass index [BMI] 25.0-25.9, adult
CPT/HCPCS: 36415; 71045; 80048; 80076; 82542; 82550; 82607; 82728; 82746; 83540; 83550; 83735; 84443; 84484; 85025; 85027; 92610; 93005; 97166; 99285; J1650; J1885; J2060; J2765